=== PATIENT | female | born 1980 | race Caucasian/White ===

== ENCOUNTER → 2022-02-04 13:45 | Outpatient (BNVA) | payer BC, SELFPAY | PROVIDERS: Family Provider Nurse Practitioner Family; PCP Nurse Practitioner Family; Visit Provider Physician Assistant | DX: M54.50 Low back pain, unspecified (principal); M47.814 Spondylosis without myelopathy or radiculopathy, thoracic region; M47.816 Spondylosis without myelopathy or radiculopathy, lumbar region | CPT/HCPCS: 72072; 72110; 72170 ==

== ENCOUNTER 2022-06-24 15:02 | Outpatient (CLI) | payer BC, SELFPAY ==
--- NOTE | 2022-06-24 15:15 | MR_ITS ---
WS: [id number] MRI LUMBAR SPINE NONCONTRAST HISTORY: Chronic back pain. Bilateral leg weakness. COMPARISON: Radiograph 02/04/2022. Prior CT 11/08/2006 TECHNIQUE: Sagittal and axial multisequence imaging is submitted. Increase in thoracic kyphosis. Thoracolumbar scoliosis. Mild increase in the lumbar lordosis. Very minimal loss of height involving L1. Concave deformities a long the superior endplate may be due to prior fracture or Schmorl's nodes. Similar findings but to a lesser extent involving the superior endplate of T12. No acute marrow edema or fracture. Disc spaces are well preserved. Conus terminates normally at L1-2 disc level. T12-L1: Mild rotation of the vertebral bodies. Marked RIGHT facet joint arthritis encroaching towards the RIGHT lateral thecal sac and foramina. Moderate ligamentum flavum hypertrophy. Very slight retro pulsion of the posterior superior endplate of L1. Mild RIGHT foraminal stenosis. L1-L2: Bilateral mild to moderate facet joint arthritis and ligamentum flavum hypertrophy. No stenosi s or disc protrusion. L2-L3: Mild facet joint and ligamentum flavum arthritis. L3-L4: Mild facet joint and ligamentum flavum arthritis. L4-L5: Mild facet joint and ligamentum flavum arthritis. L5-S1: Mild annular disc bulging with ligamentum flavum and facet arthritis. No stenosis. No disc pro trusion. No retroperitoneal abnormalities. MR/MR lumbar spine wo con* [id number] IMPRESSION: 1. Mild RIGHT foraminal stenosis at T12-L1 due to facet joint arthritis on the RIGHT and rotary scoliosis. 2. No significant stenosis throughout the lumbar spine or disc protrusions. 3. Remote appearing minimal compression deformities at T12 and L1, slightly gr eater at L1 with minimal posterior bowing of the posterior superior endplate. N o encroachment upon the conus.
== END 2022-06-24 15:03 | disposition home or self-care (01) ==
PROVIDERS: PCP Registered Nurse; Visit Provider Physician Assistant
DX: M54.50 Low back pain, unspecified (principal); G89.29 Other chronic pain; R53.1 Weakness; M48.05 Spinal stenosis, thoracolumbar region; M41.85 Other forms of scoliosis, thoracolumbar region
CPT/HCPCS: 72148

== ENCOUNTER 2022-08-24 06:00 | Outpatient (RCR) | payer BC, SELFPAY | END 2022-08-24 23:59 | disposition home or self-care (01) | LOC: WPT 06:00 | PROVIDERS: PCP Registered Nurse; Visit Provider Anesthesiology Pain Medicine | DX: M54.50 Low back pain, unspecified (principal); G89.29 Other chronic pain | CPT/HCPCS: 97110; 97161 ==

== ENCOUNTER 2022-09-22 06:00 | Outpatient (RCR) | payer BC, SELFPAY | END 2022-10-22 23:59 | disposition home or self-care (01) | LOC: WPT 06:00 | PROVIDERS: PCP Registered Nurse; Visit Provider Anesthesiology Pain Medicine | DX: M54.50 Low back pain, unspecified (principal); G89.29 Other chronic pain | CPT/HCPCS: 97110 ==

== ENCOUNTER 2023-01-06 12:00 | Observation (INO) | payer BC, SELFPAY ==
[2023-01-06] VITALS (25 sets, daily range): BP systolic 118–161; BP diastolic 51–97; PULSE 74–99; RESP 15–26; TEMP 36.2–36.9; O2SAT 94–100; BMI 32.7
--- NOTE | 2023-01-06 12:02 | ED_ITS ---
HPI - Chest Pain General: Chief Complaint: Chest Pain Stated Complaint: CHEST PAIN Time Seen by Provider: 01/06/23 12:02 History of Present Illness: Ms. 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 She notes onset of symptoms approximately 930 this morning without known specific provokin g event or factors. Substernal in location with radiation to bilateral shoulders and arms worse on the left. She had associated diaphoresis. Minimal improvement by EMS administered fentanyl and Zofran. Pain is moderate to severe. No other specific changes in health, exacerbating, or alleviating factors identified. Onset (ago): hour(s) Timing of current episode: constant Prior episodes: No Onset: during rest Pain location: substernal Pain radiation: right arm, left arm, back, left shoulder and right shoulder Severity: severe Quality: aching, heaviness and sharp Relieving factors: nothing Exacerbating factors: inspiration Associated symptoms: Reports diaphoresis; Deny dyspnea, nausea or vomiting Review of Systems General: Reports: 10 or more systems reviewed and unremarkable except in HPI and below Const: Reports: diaphoresis Resp: Denies: dyspnea GI: Denies: nausea or vomiting PFSH ED PFSH: Medical History COPD (chronic obstructive pulmonary disease) Diabetes GERD (gastroesophageal reflux disease) Lumbar pain Smokes cigarettes Social History Smoking and tobacco status: current every day smoker Alcohol intake: never Substance/Drug Use: never Physical Exam Const: COMMON NORMALS: alert GENERAL APPEARANCE: cooperative and well developed HENMT: COMMON NORMALS: normocephalic and atraumatic HEAD & SCALP: norm ocephalic and atraumatic Eye: COMMON NORMALS: conjunctivae normal CONJUNCTIVA: Yes conjunctivae normal SCLERA: sclerae normal Neck/C-Spine: COMMON NORMALS: supple GENERAL: Yes trachea midline Resp: COMMON NORMALS: clear to auscultation bilaterally EFFORT & INSPECTION: Yes able to speak in complete sentences AUSCULTATION: clear to auscultation bilaterally Cardio: COMMON NORMALS: regular rate and regular rhythm RATE: regular rate RHYTHM: regular rhythm GI: COMMON NORMALS: Soft to palpation PALPATION: Yes Soft to palpation and No Tenderness to palpation present (GI) Extremity: GENERAL: Yes normal exam except as noted and No edema Neuro: COMMON NORMALS: moves all extremities SENSORIUM/ORIENTATION: Yes alert and No Orientation impaired Psych: COMMON NORMALS: mental status grossly normal and Normal thought process present THOUGHT PROCESS: Normal thought process present Course Vital Signs: Vital signs: Vital Signs Temperature 98.7 F 01/07/23 15:20 Pulse Rate 102 H 01/07/23 15:20 Respiratory Rate 18 01/07/23 15:20 Blood Pressure 114/84 01/07/23 14:45 Pulse Oximetry 93 01/07/23 15:20 Oxygen Delivery Me thod Room Air 01/07/23 15:20 MDM - Chest Pain Medical Decision Making 42-year-old female presenting for atraumatic chest pain. She is nontoxic however does appear somewhat uncomfortable. Given description of symptoms in the context of medical history patient requires further ED evaluation and testing. EKG notable for sinus rhythm with normal axis and intervals, nonspecific ST segment flattening in inferior lead, no STEMI. Labs notable for no leukocytosis, normal hemoglobin. Mild thrombocytopenia of uncertain etiology with no bleeding noted on exam. Mild dehydration with hyponatremia and minimally decreased bicarb. Glucose is elevated though overall metabolic panel and clinical history is not consistent with DKA. Patient has a intermediate range 2-hour delta troponin. hCG negative. Chest x-ray with no lobar consolidation or pneumothorax. Patient treated during ED course with analgesia, GI cocktail, aspirin. Given overall clinical picture including indeterminate range 2-hour troponin and continued discomfort I believe that the patient requires inpatient cardiac evaluation as she is not low risk by risk stratification. The results of ED evaluation were discussed with the patient including plan for admission due to requirement for level of care not available if discharged to prevent significant worsening/deterioration. Patient agreeable with plan. Discussed with hospitalist service who was agreeable to admit patient. Medical Records I reviewed the patient's medical records. Lab Data I reviewed the patient's lab results. 01/07/23 04:31 01/07/23 04:31 Radiology Impressions Chest X-Ray 01/06/23 12:16 IMPRESSION: No acute cardiopulmonary abnormality. Laboratory Results WBC 10.0 10^3/uL (4.0-10.0) 01/06/23 12:31 RBC 4.66 10^6/uL (4.1-5.3) 01/06/23 12:31 Hgb 12.4 g/dL (11.5-15.3) 01/06/23 12: Hct 39.5 % (37.0-47.0) 01/06/23 12: MCV 84.8 fl (81-99) 01/06/23 12: MCH 26.6 pg (28.0-34.0) L 01/06/23 12: MCHC 31.4 g/dL (30.0-36.0) 01/06/23 12: RDW 14.5 % (12.1-15.1) 01/06/23 12: Plt Count 129 10^3/cmm (130-400) L 01/06/23 12: MPV 10.6 fL (7.4-10.4) H 01/06/23 12: Neut % (Auto) 85.0 % 01/06/23 12: Lymph % (Auto) 9.4 % 01/06/23 12: Wallace % (Auto) 4.7 % 01/06/23 12: Eos % (Auto) 0.4 % 01/06/23 12: Baso % (Auto) 0.2 % 01/06/23 12: Neut # (Auto) 8.47 10^3/uL (1.8-7.7) H 01/06/23 12: Lymph # (Auto) 0.9 10^3/uL (0.8-4.8) 01/06/23 12: Wallace # (Auto) 0.5 10^3/uL (0.2-0.9) 01/06/23 12: Eos # (Auto) 0.0 10^3/uL (0.0-0.8) 01/06/23 12: Baso # (Auto) 0.0 10^3/uL (0.0-0.1) 01/06/23 12: Nucleated RBC % (auto) 0 % 01/06/23: Nucleated RBCs # 0.0 /100WBC 01/06/23 12: D-Dimer <= 0.27 ug/mIFEU (0-0.59) 01/06/23 12: D-Dimer Cancelled 01/06/23 12: Sodium 133 mmol/L (136-145) L 01/06/23 12:31 Potassium 4.8 mmol/L (3.5-5.1) 01/06/23 12:31 Chloride 102 mmol/L (98-107) 01/06/23 12:31 Carbon Dioxide 19 mmol/L (22-29) L 01/06/23 12:31 Anion Gap 16.8 (5-19) 01/06/23 12:31 BUN 16 mg/dL (6-20) 01/06/23 12:31 Creatinine 0.2 mg/dL (0.5-0.9) L 01/06/23 12:31 GFR Calculation 393.4 mL/min (90-130) H 01/06/23 12:31 Glucose 251 mg/dL (65-115) H 01/06/23 12:31 Calculated Osmolality 286 mOsm/kg (285-295) 01/06/23 12:31 Calcium 8.6 mg/dL (8.5-10.5) 01/06/23 12:31 Total Bilirubin 0.2 mg/dL (0.15-1.2) 01/06/23 12:31 AST 26 U/L (0-32) 01/06/23 12:31 ALT 30 U/L (0-33) 01/06/23 12:31 Alkaline Phosphatase 52 U/L (35-105) 01/06/23 12:31 Troponin T Baseline 29 ng/L (0-10) H 01/06/23 12:31 Troponin T 120 Minute 36.13 ng/L (0-10) H 01/06/23 14:36 Delta Troponin T 7.13 ABS# (0-10) 01/06/23 14:36 NT-Pro-B Natriuret Pep 36 pg/mL (0-125) 01/06/23 12:31 Total Protein 6.4 g/dL (6.6-8.7) L 01/06/23 12:31 Albumin 4.3 g/dL (3.5-5.2) 01/06/23 12:31 Globulin 2.1 g/dL (1.3-4.6) 01/06/23 12:31 Lipase 50 U/L (13-60) 01/06/23 12:31 HCG, Qual Negative (Negative) 01/06/23 12:44 Discharge Plan Discharge Patient Disposition: Placed in Observation Admit Provider: Charisma Medina Clinical Impression: Chest pain Coding Level of Care Code ED Supervisor [employer] for [facility] Edvin
--- NOTE | 2023-01-06 12:16 | ECG_ITS ---
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 Measurements Intervals [place] Rate: 66 P: 27 NE: 180 QRS: 7 QRSD: 92 T: 30 QT: 409 QTc: 430 Interpretive Statements SINUS RHYTHM WITH SINUS ARRHYTHMIA POSSIBLE ANTERIOR MYOCARDIAL INFARCTION , OF INDETERMINATE AGE [30 ms Q WAVE IN V3/V4, OR R < 0.2 mV IN V4] No previous ECG available for comparison Electronically Signed On 01-06-2023 16:34:26 CDT by Rosalinda Harman M.D. [id number]
--- NOTE | 2023-01-06 12:16 | XRR_ITS ---
PROCEDURE INFORMATION: Exam: XR Chest Exam date and time: 01/06/2023 12:31 PM Age: 42 years old Clinical indication: Condition or disease; Lung condition and disease; Copd; Additional info: Chest pain with history of copd. TECHNIQUE: Imaging protocol: Radiologic exam of the chest. Views: 1 view. COMPARISON: CR XR thoracic spine 3V* [id number] 02/04/2022 2:51 PM FINDINGS: Lungs: Unremarkable. No consolidation. Pleural spaces: Unremarkable. No pleural effusion. No pneumothorax. Heart/Mediastinum: Unremarkable. No cardiomegaly. Bones/joints: Mild thoracic dextroscoliosis with mild spondylotic change. XR/XR chest 1V portable [id number] IMPRESSION: No acute cardiopulmonary abnormality.
[2023-01-06] MEDS: aspirin 81 mg Chew Tablet 324 MG PO (12:39)
[2023-01-06] MEDS: lidocaine 2% viscous 15 ML, aluminum-mag hydrox-simethicon 30 ML, sucralfate oral liq 1 GM PO (12:42)
[2023-01-06 12:49] LABS: Basophils % 0.2 %; Eosinophils % 0.4 %; Hematocrit 39.5 % (37.0-47.0); Hemoglobin 12.4 g/dL (11.5-15.3); Lymphocytes # 0.9 10^3/uL (0.8-4.8); Lymphocytes % 9.4 %; Mean Corpuscular HGB Conc 31.4 g/dL (30.0-36.0); Mean Corpuscular Hemoglobin 26.6 pg (28.0-34.0); Mean Corpuscular Volume 84.8 fl (81-99); Mean Platelet Volume 10.6 fL (7.4-10.4); Monocytes # 0.5 10^3/uL (0.2-0.9); Monocytes % 4.7 %; Neutrophils # 8.47 10^3/uL (1.8-7.7); Nucleated Red Blood Cells % 0 %; Platelet Count 129 10^3/cmm (130-400); Red Blood Count 4.66 10^6/uL (4.1-5.3); Red Cell Distribution Width 14.5 % (12.1-15.1)
[2023-01-06] MEDS: HYDROmorphone 1 mg/mL INJ 1 mL 0.5 MG IVP ×2 (12:56→14:38)
[2023-01-06 13:10] LABS: Troponin(5th) Baseline 29 ng/L (0-10)
[2023-01-06 13:10] LABS: HCG Qualitative Urine. Negative (Negative)
[2023-01-06 13:17] LABS: Alanine Aminotransferase 30 U/L (0-33); Albumin Level 4.3 g/dL (3.5-5.2); Alkaline Phosphatase 52 U/L (35-105); Aspartate Amino Transferase 26 U/L (0-32); Blood Urea Nitrogen 16 mg/dL (6-20); Calcium 8.6 mg/dL (8.5-10.5); Carbon Dioxide 19 mmol/L (22-29); Chloride 102 mmol/L (98-107); Globulin 2.1 g/dL (1.3-4.6); Glomerular Filtration Rate 393.4 mL/min (90-130); Glucose 251 mg/dL (65-115); Lipase 50 U/L (13-60); NT Pro B Type Natriuretic Pept 36 pg/mL (0-125); Osmolality Calculated 286 mOsm/kg (285-295); Sodium 133 mmol/L (136-145); Total Bilirubin 0.2 mg/dL (0.15-1.2); Total Protein 6.4 g/dL (6.6-8.7)
[2023-01-06 13:18] LABS: Anion Gap 16.8 (5-19); Potassium 4.8 mmol/L (3.5-5.1)
[2023-01-06 13:30] LABS: Slide Review Slide Review Perform
[2023-01-06 14:04] LABS: D Dimer <= 0.27 ug/mIFEU (0-0.59)
--- NOTE | 2023-01-06 14:16 | ECG_ITS ---
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 Measurements Intervals [place] Rate: 65 P: 21 [place]: 183 QRS: 0 QRSD: 96 T: 40 QT: 394 QTc: 410 Interpretive Statements SINUS RHYTHM LOW QRS VOLTAGE IN PRECORDIAL LEADS [QRS DEFLECTION < 1.0 mV IN CHEST LEADS] Compared to ECG 01/06/2023 12:16:35 Low QRS voltage now present Sinus arrhythmia no longer present Myocardial infarct finding no longer present Electronically Signed On 01-06-2023 16:34:51 CDT by Rosalinda Harman M.D. [id number]
[2023-01-06 15:05] LABS: Troponin 5 2HR 36.13 ng/L (0-10)
[2023-01-06 15:09] LABS: Troponin 5 2HR Delta 7.13 ABS# (0-10)
[2023-01-06] MEDS: nicotine 14 mg Patch 1 PATCH TRANSDERMA (16:13)
[2023-01-06 17:46] LABS: Glucose Point of Care 217 mg/dL (70-110)
--- NOTE | 2023-01-06 17:46 | ECG_ITS ---
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 Interpretive Statements NAME OF STUDY: LEXISCAN SESTAMIBI STRESS TEST INDICATION: [Chest Pain, ] Procedure: At the baseline, the blood pressure was 150/96 mmHg with a heart rate of 98 bpm. The electrocardiogram showed normal sinus rhythm, normal axis with normal ST and T's. The Lexiscan was infused over a period of 20 seconds. A total of 0.4 mg of Lexiscan was infused. The stress phase was continued for a total of 5 minutes. Heart rate was at the end of stress phase was 120 bpm and a blood pressure of 185/89 mmHg. The EKG at the peak infusion revealed normal sinus rhythm with no significant ST-T wave changes. Sestamibi was injected 20 seconds after the Lexiscan infusion. Blood pressure at the end of recovery phase was 154/67 mmHg with a heart rate of 102 bpm. Conclusion: 1. Normal EKG response to Lexiscan infusion 2. No Lexiscan induced chest pain or cardiac arrhythmia. 3. Normal blood pressure and heart rate response. 4. Sestamibi/sestamibi perfusion scan pending; see separate report. Electronically Signed On 01-14-2023 15:50:35 CDT by Donaldo Garcia M.D. [id number]
--- NOTE | 2023-01-06 18:00 | P.HP_ITS ---
Providers/Chief Complaint Admitting Physician: Charisma Medina MD Primary Care Provider: MAIKEL Suarez Chief Complaint: CHEST PAIN History of Present Illness Maritza Landis is a 42 year old female with PMH HTN, DM , smoking, Pompei disease who presentes today for central chest pain that started whiel she was driving home. radiating to jaw, no associated diaphoresis, dyspnea. EKG without acute ST-T wave changes. Troponin trend at 2 hrs unremarkable thus far. D dimer is negative. no past h/o CAD. has ah/o similar chest pain 2 years ago at which time stress test was taken and negative . pain is currently relived with opiates Review of Systems General: Reports: 10 or more systems reviewed and unremarkable except in HPI and below Const: Denies: fever(s), chills or body aches Eyes: Denies: change in vision, blurry vision or photophobia ENMT: Reports: hoarseness; Denies: throat pain, enlarged tonsils, odynophagia or nasal congestion Card: Denies: chest pain, palpitations, irregular heart rhythm, edema, swelling of feet/ankles, lightheadedness, pre-syncope, dyspnea on exertion or orthopnea Resp: Denies: dyspnea, productive cough, non-productive cough, wheezing, stridor, pain on inspiration, change in phlegm color, hemoptysis or chest congestion GI: Denies: abdominal pain, nausea, vomiting, hematemesis, coffee ground emesis, dysphagia, heartburn, diarrhea, constipation, GI cramping, change in st ool character, hematochezia or melena : Denies: flank pain, difficulty voiding, dysuria, urinary frequency, urinary urgency, urinary hesitancy or hematuria Musc: Denies: neck pain, back pain, extremity pain, joint swelling, joint warmth or deformity Neuro: Denies: headache(s), numbness in extremities, weakness in extremities, sensory changes, difficulty walking, frequent falls, dizziness, vertigo, behavio ral changes, Slurred speech present or seizure-like activity Psych: Denies: anxiety, depression, suicidal ideation or homicidal ideation Endo: Denies: polyuria, polydipsia, tired all the time, cold intolerance or hot flashes Bob/Lymph: Denies: easy bruising or easy bleeding Medications/Allergies Home Medications Medication Instructions Recorded Confirmed Last Taken Type omeprazole 20 mg capsule,delayed 20 mg PO DAILY 02/04/22 01/06/23 01/05/23 History release potassium chloride 20 mEq 20 meq PO DAILY 02/04/22 01/06/23 01/05/23 History tablet,extended release diclofenac sodium 50 mg 50 mg PO BID #60 tabs 04/12/22 01/06/23 01/05/23 Rx tablet,delayed release Marijuana 08/12/22 01/06/23 Unknown History methocarbamol 750 mg tablet 750 mg PO Q8H 08/12/22 01/06/23 Unknown History semaglutide 7 mg tablet (Rybelsus) 7 mg PO DAILY 08/12/22 01/06/23 01/05/23 History aripiprazole 2 mg tablet 2 mg PO DAILY 01/06/23 01/06/23 01/05/23 History duloxetine 60 mg capsule,delayed 60 mg PO DAILY 01/06/23 01/06/23 01/05/23 History release insulin detemir U-100 100 unit/mL 90 unit SUBCUT DAILY 01/06/23 01/06/23 01/05/23 History (3 mL) subcutaneous pen (Levemir FlexPen) magnesium 200 mg tablet 200 mg PO DAILY 01/06/23 01/06/23 01/05/23 History tumeric 100 mg-joel 150 mg-olive 1 cap PO BID 01/06/23 01/06/23 01/05/23 History 50 mg-oreg 150 mg-caprylate capsule vitamin E 268 mg (400 unit) capsule 268 mg PO DAILY 01/06/23 01/06/23 01/05/23 History Allergies Allergy/AdvReac Type Severity Reaction Status Date / Time metformin Allergy Intermediate diarrhea Verified 01/06/23 12:20 exenatide [From Bydureon] Allergy Mild knots Verified 01/06/23 12:20 hydrocodone Allergy Mild ADR-Diarrhe Verified 01/06/23 12:20 [From Hycomine a (hydrocodone-PPA)] phenylpropanolamine Allergy Mild ADR-Diarrhe Verified 01/06/23 12:20 [From Hycomine a (hydrocodone-PPA)] PFSH Acute PFSH: Medical History COPD (chronic obstructive pulmonary disease) Diabetes GERD (gastroesophageal reflux disease) Lumbar pain Smokes cigarettes Social History Smoking and tobacco status: current every day smoker Alcohol intake: never Substance/Drug Use: never Female Reproductive History: Date of last menstrual period: 12/13/22 Vitals/I&O/Wt Last Vital Signs Temp 98.8 F 01/07/23 12:00 Pulse 91 01/07/23 12:00 Resp 20 H 01/07/23 12:00 BP 114/84 01/07/23 12:00 Pulse Ox 95 01/07/23 12:00 O2 Del Method Room Air 01/07/23 12:00 01/06/23 01/07/23 01/07/23 22:59 06:59 14:59 Intake Total 0 / 0 180 / 180 Output Total 0 / 0 Balance 0 / 0 180 / 180 Weight last 48 hrs Weight 103.419 kg Physical Exam Narrative: General: No acute distress, AO x3 HEENT: PERRLA, pupils bilaterally equal and reactive, pallors not present Chest: Normal vesicular breath sounds, no added sounds, equal good air entry bilaterally CVS: S1-S2 regular, no murmurs, no tachycardia, no gallops, no rubs Abdomen: Soft, nontender, no organomegaly, bowel sounds present Neuro: No focal deficits, no facial deformity, AO x3, power 5/5 in all limbs Data 01/07/23 04:31 01/07/23 04:31 A&P Assessment and plan (1) Chest pain: patient presenting today with atypical chest pain EKG withotu acute ST-T wave changes trop trend 29--> 36--> pending D dimer negative, no respiratory symptoms, low probability PE Given multiple cardiac risk factors (DM, HTN, smoking), will proceed with stress test in am Attestations Medical Necessity Statement*: less than 2 midnight stay anticipated for evaluation of atypical chest pain Coding Level of Care Code Acute Code for g Fwd Diagnoses Chest pain R07.9
--- NOTE | 2023-01-06 18:16 | ECG_ITS ---
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 Measurements Intervals [place] Rate: 77 P: 32 PA: 175 QRS: 1 QRSD: 94 T: 54 QT: 375 QTc: 426 Interpretive Statements SINUS RHYTHM LOW QRS VOLTAGE IN PRECORDIAL LEADS [QRS DEFLECTION < 1.0 mV IN CHEST LEADS] Compared to ECG 01/06/2023 14:26:14 No significant changes Electronically Signed On 01-07-2023 4:58:56 CDT by Rosalinda Harman M.D. [id number]
[2023-01-06 18:57] LABS: Troponin 5 6HR 90.76 ng/L (0-10)
[2023-01-06 18:59] LABS: Troponin 5 6HR Delta 61.76 ng/L (0-12)
[2023-01-06] MEDS: pneumococcal (23 valent) SDV 0.5 mL IM (19:34)
[2023-01-06] MEDS: insulin lispro 100 unit/1 mL SUBCUT ×2 (19:37→22:03)
[2023-01-06 21:51] LABS: Glucose Point of Care 204 mg/dL (70-110)
[2023-01-07] VITALS (9 sets, daily range): BP systolic 114–160; BP diastolic 67–90; PULSE 86–102; RESP 18–20; TEMP 36.8–37.1; O2SAT 93–98
[2023-01-07] MEDS: enoxaparin 100 mg/mL Syringe SUBCUT (03:41)
[2023-01-07 05:39] LABS: Basophils % 0.6 %; Eosinophils # 0.1 10^3/uL (0.0-0.8); Eosinophils % 1.5 %; Hematocrit 39.7 % (37.0-47.0); Hemoglobin 12.8 g/dL (11.5-15.3); Lymphocytes # 2.1 10^3/uL (0.8-4.8); Lymphocytes % 31.7 %; Mean Corpuscular HGB Conc 32.2 g/dL (30.0-36.0); Mean Corpuscular Hemoglobin 26.9 pg (28.0-34.0); Mean Corpuscular Volume 83.6 fl (81-99); Mean Platelet Volume 10.9 fL (7.4-10.4); Monocytes # 0.4 10^3/uL (0.2-0.9); Monocytes % 6.3 %; Neutrophils # 3.99 10^3/uL (1.8-7.7); Neutrophils % 59.6 %; Nucleated Red Blood Cells % 0 %; Platelet Count 269 10^3/cmm (130-400); Red Blood Count 4.75 10^6/uL (4.1-5.3); Red Cell Distribution Width 14.5 % (12.1-15.1); White Blood Count 6.7 10^3/uL (4.0-10.0)
[2023-01-07 05:50] LABS: Estmated Average Glucose 203; Hemoglobin A1C 8.7 % (4.0-6.0)
[2023-01-07 05:57] LABS: Alanine Aminotransferase 29 U/L (0-33); Alkaline Phosphatase 53 U/L (35-105); Anion Gap 15.7 (5-19); Aspartate Amino Transferase 36 U/L (0-32); Blood Urea Nitrogen 9 mg/dL (6-20); Calcium 9.1 mg/dL (8.5-10.5); Carbon Dioxide 22 mmol/L (22-29); Chloride 102 mmol/L (98-107); Chol HDL Ratio 5.08 mg/dL (0.0-4.40); Cholesterol 203 mg/dL (0-200); Globulin 2.5 g/dL (1.3-4.6); Glomerular Filtration Rate 393.4 mL/min (90-130); Glucose 203 mg/dL (65-115); HDL Cholesterol 40 mg/dL (60-100); LDL Cholesterol Calculated 123 mg/dL (50-129); LDL HDL Ratio 3.08 RATIO (0.00-3.22); Osmolality Calculated 286 mOsm/kg (285-295); Potassium 3.7 mmol/L (3.5-5.1); Sodium 136 mmol/L (136-145); Total Bilirubin 0.4 mg/dL (0.15-1.2); Total Protein 6.5 g/dL (6.6-8.7); Triglycerides 198 mg/dL (0-150)
[2023-01-07] MEDS: regadenoson 0.4 Mg/5 ml Syringe IVP (07:25)
[2023-01-07] MEDS: ondansetron 2 mg/ML SDV 2 mL 4 MG IVP (07:33)
--- NOTE | 2023-01-07 08:00 | NMCV_ITS ---
NM sherman perf SPECT r/s* [id number] Maritza Landis Age: 42 Gender: F : 1980 Exam Date: 01/07/2023 06:36 Ordering Phys: Charisma Medina MD Technologist: RENEA Roach Exam Location: [facility] Indications: CHEST PAIN STRESS TEST Please see separate stress test report in [facility] for full findings IMAGE PROTOCOL Rest/Stress 1 Lexiscan Day Radiopharmaceutical Dose (mCi) Administration Site Administered by Rest: Tc-99m 10.9 IV Ricky Rodríguez, EQUIPMENT SERVICES ASSOCIATE Sestamibi Stress:Tc-99m 32.9 IV RENEA Roach Sestamibi Rest: 01/07/2023 60 Discovery 630 Stress: 01/07/2023 30 Discovery 630 0.4mg Lexiscan. Images obtained in supine and prone position. SPECT RESULTS Technical Quality: Excellent Raw Data Analysis: Normal Image Corrections: No attenuation or motion correction applied Summed Stress Score: 0 Summed Rest Score: 0 Summed Difference Score: 0 PERFUSION FINDINGS SPECT images demonstrate homogeneous tracer distribution throughout the myocardium. FUNCTIONAL RESULTS (calculated via Gated SPECT) Stress Image LV EF (%): 72 Stress EDV (mL):94 TID: 1.35 Stress ESV (mL):26 FUNCTIONAL FINDINGS: There is normal left ventricular systolic function. Elevated TID ratio IMPRESSIONS 1. Normal myocardial perfusion imaging with no evidence of ischemia 2. LV systolic function is normal. 3. Elevated TID ratio but in absence of perfusion abnormality, significance of this finding is equivocal. Donaldo Garcia MD (Electronically Signed) Final Date: 07 January 2023 13:27 S
[2023-01-07 08:43] LABS: Glucose Point of Care 262 mg/dL (70-110)
[2023-01-07] MEDS: potassium chloride ER 20 mEq Tablet PO (09:25)
[2023-01-07] MEDS: duloxetine 60 mg Capsule PO (09:25)
[2023-01-07] MEDS: magnesium oxide 400 mg tablet 200 MG PO (09:26)
[2023-01-07] MEDS: ARIPiprazole 2 mg Tablet PO (09:26)
[2023-01-07] MEDS: pantoprazole DR 40 mg Tablet PO (09:26)
[2023-01-07] MEDS: insulin lispro 100 unit/1 mL SUBCUT ×2 (09:26→11:43)
[2023-01-07] MEDS: insulin glargine 100 units/1 mL 60 UNIT SUBCUT (10:09)
[2023-01-07 11:07] LABS: Glucose Point of Care 228 mg/dL (70-110)
--- NOTE | 2023-01-07 14:29 | P.DS_ITS ---
Discharge Providers Date of Admission: 01/06/23 17:09 Date of Discharge: January 07, 2023 Attending Provider at Admission: Charisma Medina MD Attending Provider at Discharge: Charisma Medina MD Primary Care Provider: MAIKEL Suarez Reason for Visit Reason for Visit: CHEST PAIN Hospital Course Hospital Course 42F with PMH HTN, DM, smkoing, Pompe disease presented with c/o atypical chest pain. trop trend 29--> 36--> 90 without progressive changes on EKG. Chest pain was relieved shortly after arrival at ER after receiving opiates. She underwent stress test for ischemic w/up. Stress test was without any signs of reversible ischemia. Given that troponins did elevate with significant delta, she was recommended to obtain further evaluation with echocardiogram for any underlyibg structural heart disease. She declined inpatient echo and wished to pursue further w/up as outpatient and requested referral to cardiology. Echocardiogram was ordered as outpatint and cardiology referral provided. There was no recurrence of chest pain. She is asymptomatic at time of discharge. Physical Exam 2 Narrative: General: No acute distress, AO x3 HEENT: PERRLA, pupils bilaterally equal and reactive, pallors not present Chest: Normal vesicular breath sounds, no added sounds, equal good air entry bilaterally CVS: S1-S2 regular, no murmurs, no tachycardia, no gallops, no rubs Abdomen: Soft, nontender, no organomegaly, bowel sounds present Neuro: No focal deficits, no facial deformity, AO x3, power 5/5 in all limbs Discharge Data Studies Completed and Pending Completed Studies During Hospitalization Category Date Time Status Cardiac Stress Test MIBI [Sestamibi Stress Test Request Exams 01/06/23 17:46 Draft ] Routine XR chest 1V portable [id number] Stat Exams 01/06/23 12:16 Completed NM sherman perf SPECT r/s* [id number] Routine Nuc Med 01/07/23 08:00 Completed Radiology Impressions Chest X-Ray 01/06/23 12:16 IMPRESSION: No acute cardiopulmonary abnormality. Laboratory Results WBC 6.7 10^3/uL (4.0-10.0) 01/07/23 04:31 RBC 4.75 10^6/uL (4.1-5.3) 01/07/23 04:31 Hgb 12.8 g/dL (11.5-15.3) 01/07/23 04:31 Hct 39.7 % (37.0-47.0) 01/07/23 04:31 MCV 83.6 fl (81-99) 01/07/23 04:31 MCH 26.9 pg (28.0-34.0) L 01/07/23 04:31 MCHC 32.2 g/dL (30.0-36.0) 01/07/23 04:31 RDW 14.5 % (12.1-15.1) 01/07/23 04:31 Plt Count 269 10^3/cmm (130-400) D 01/07/23 04:31 MPV 10.9 fL (7.4-10.4) H 01/07/23 04:31 Neut % (Auto) 59.6 % 01/07/23 04:31 Lymph % (Auto) 31.7 % 01/07/23 04:31 [place] % (Auto) 6.3 % 01/07/23 04:31 Eos % (Auto) 1.5 % 01/07/23 04:31 Baso % (Auto) 0.6 % 01/07/23 04:31 Neut # (Auto) 3.99 10^3/uL (1.8-7.7) 01/07/23 04:31 Lymph # (Auto) 2.1 10^3/uL (0.8-4.8) 01/07/23 04:31 [place] # (Auto) 0.4 10^3/uL (0.2-0.9) 01/07/23 04:31 Eos # (Auto) 0.1 10^3/uL (0.0-0.8) 01/07/23 04:31 Baso # (Auto) 0.0 10^3/uL (0.0-0.1) 01/07/23 04:31 Nucleated RBC % (auto) 0 % 01/07/23 04:31 Nucleated RBCs # 0.0 /100WBC 01/07/23 04:31 D-Dimer <= 0.27 ug/mIFEU (0-0.59) 01/06/23 12:31 D-Dimer Cancelled 01/06/23 12:31 Sodium 136 mmol/L (136-145) 01/07/23 04:31 Potassium 3.7 mmol/L (3.5-5.1) 01/07/23 04:31 Chloride 102 mmol/L (98-107) 01/07/23 04:31 Carbon Dioxide 22 mmol/L (22-29) 01/07/23 04:31 Anion Gap 15.7 (5-19) 01/07/23 04:31 BUN 9 mg/dL (6-20) 01/07/23 04:31 Creatinine 0.2 mg/dL (0.5-0.9) L 01/07/23 04:31 GFR Calculation 393.4 mL/min (90-130) H 01/07/23 04:31 Glucose 203 mg/dL (65-115) H 01/07/23 04:31 POC Glucose 228 mg/dL (70-110) H 01/07/23 10:59 Estimat Average Glucose 203 01/07/23 04:31 Hemoglobin A1c 8.7 % (4.0-6.0) H 01/07/23 04:31 Calculated Osmolality 286 mOsm/kg (285-295) 01/07/23 04:31 Calcium 9.1 mg/dL (8.5-10.5) 01/07/23 04:31 Total Bilirubin 0.4 mg/dL (0.15-1.2) 01/07/23 04:31 AST 36 U/L (0-32) H 01/07/23 04:31 ALT 29 U/L (0-33) 01/07/23 04:31 Alkaline Phosphatase 53 U/L (35-105) 01/07/23 04:31 Troponin T Baseline 29 ng/L (0-10) H 01/06/23 12:31 Troponin T 120 Minute 36.13 ng/L (0-10) H 01/06/23 14:36 Delta Troponin T 7.13 ABS# (0-10) 01/06/23 14:36 Troponin T Hi Sens 6Hr 90.76 ng/L (0-10) H 01/06/23 18:30 Troponin T Hi Sens 6Hr Delta 61.76 ng/L (0-12) H* 01/06/23 18:30 NT-Pro-B Natriuret Pep 36 pg/mL (0-125) 01/06/23 12:31 Total Protein 6.5 g/dL (6.6-8.7) L 01/07/23 04:31 Albumin 4.0 g/dL (3.5-5.2) 01/07/23 04:31 Globulin 2.5 g/dL (1.3-4.6) 01/07/23 04:31 Triglycerides 198 mg/dL (0-150) H 01/07/23 04:31 Cholesterol 203 mg/dL (0-200) H 01/07/23 04:31 LDL Cholesterol, Calc 123 mg/dL (50-129) 01/07/23 04:31 HDL Cholesterol 40 mg/dL (60-100) L 01/07/23 04:31 LDL/HDL Ratio 3.08 RATIO (0.00-3.22) 01/07/23 04:31 Cholesterol/HDL Ratio 5.08 mg/dL (0.0-4.40) H 01/07/23 04:31 Lipase 50 U/L (13-60) 01/06/23 12:31 HCG, Qual Negative (Negative) 01/06/23 12:44 Vitals Last Vital Signs Temp 98.8 F 01/07/23 12:00 Pulse 91 01/07/23 12:00 Resp 20 H 01/07/23 12:00 BP 114/84 01/07/23 12:00 Pulse Ox 95 01/07/23 12:00 O2 Del Method Room Air 01/07/23 12:00 Discharge Plan Discharge Patient Disposition: Home Condition: Stable Prescriptions: Continued potassium chloride 20 mEq tablet extended release 20 meq PO DAILY omeprazole 20 mg capsule,delayed release(DR/EC) 20 mg PO DAILY Rybelsus 7 mg tablet 7 mg PO DAILY methocarbamol 750 mg tablet 750 mg PO Q8H (DME) Marijuana 0 .ROUTE .MEDSUPPLY diclofenac sodium 50 mg tablet,delayed release (DR/EC) 50 mg PO BID Qty: 60 3RF Rx Instructions: take with food duloxetine 60 mg capsule,delayed release(DR/EC) 60 mg PO DAILY Levemir FlexPen 100 unit/mL (3 mL) insulin pen 90 unit SUBCUT DAILY aripiprazole 2 mg tablet 2 mg PO DAILY vitamin E 268 mg (400 unit) Capsule 268 mg PO DAILY magnesium 200 mg Tablet 200 mg PO DAILY hhllkrr-ewre-usrlb-oreg-capryl 100 mg-150 mg- 50 mg-150 mg Capsule 1 cap PO BID Discharge Orders: Discharge Order (Routine); Ordered 01/07/23 Ordered By: Charisma Medina Referrals: Moises Green CPNP [Primary Care Provider] - 01/10/23 2:00 pm (If you need to reschedule, just call the office at [phone] to speak with them about a different appointment. Thank you.) Donaldo Garcia M.D [Physician] - (Please call Dr. Garcia's Office on Tuesday to schedule a follow up appointment for 10-14 days. Thank you.) Patient Instructions: Cardiac Stress Test (GEN), Chest Pain Stoplight, Opioid Safety Discharge Attestations Time Spent in Discharge Care*: greater than 30 min Quality Metrics Clinical Quality Measures [ No reported AMI, CVA or VTE this stay] Coding Level of Care Code Acute Code for Chg Fwd Diagnoses
--- NOTE | 2023-01-07 16:25 | PC.NURSE ---
Patient given verbal and written discharge information, patient verbalized understanding. IV removed at 15:30, patient tolerated well. Patient taken to parking lot via wheelchair. Left facility with family.
== END 2023-01-07 15:50 | disposition home or self-care (01) ==
LOC: ER 15:53 → CSU 01-07 06:12
PROVIDERS: Admitting Provider Student in an Organized Health Care Education/Training Program; Emergency Provider Emergency Medicine; PCP Registered Nurse; Visit Provider Student in an Organized Health Care Education/Training Program
DX: E11.9 Type 2 diabetes mellitus without complications (principal); Z79.4 Long term (current) use of insulin; I10 Essential (primary) hypertension; F17.200 Nicotine dependence, unspecified, uncomplicated; D69.6 Thrombocytopenia, unspecified; E86.0 Dehydration; E87.1 Hypo-osmolality and hyponatremia; R07.9 Chest pain, unspecified; J44.9 Chronic obstructive pulmonary disease, unspecified; K21.9 Gastro-esophageal reflux disease without esophagitis; M54.9 Dorsalgia, unspecified; G89.29 Other chronic pain; Z23 Encounter for immunization
CPT/HCPCS: 36415; 36416; 71045; 78452; 80053; 80061; 81025; 82962; 83036; 83690; 83880; 84484; 85025; 85378; 90732; 93005; 93017; 96372; 96374; 96375; 96376; 99285; A9500; G0378; J1170; J1650; J1815; J2405; J2785

== ENCOUNTER 2023-01-13 07:11 | Outpatient (CLI) | payer BC, SELFPAY ==
--- NOTE | 2023-01-13 06:45 | USCV_ITS ---
Maritza Landis Age: 42 Gender: F : 1980 Exam Date: 01/13/2023 07:29 Ordering Phys: Charisma Medina MD Technologist: VIDYA Exam Location: [facility] [place] Indication: RECURRENT CHEST PAIN BP: 125 / 71 HR: 75 Rhythm: Sinus Technical Quality: Adequate MEASUREMENTS (Male / Female) Normal Values 2D ECHO LVOT Diameter 2.0 cm LV Ejection Fraction MOD 2C 62.0 % LV Ejection Fraction 2C AL 64.0 % LA Diameter 3.2 cm LA Width 2.7 cm LA Height 4.7 cm RA Width 3.5 cm RA Height 4.0 cm Aorta at Sinotubular Diameter 2.5 cm IVC Diameter 1.5 cm M-MODE Aortic Annulus Diameter 3.3 cm LA Ao Ratio MM 0.9 MV E Point Septal Separation 0.6 cm DOPPLER AV Peak Velocity 151.0 cm/s LVOT Peak Velocity 130.0 cm/s AV Area Cont Eq vti 2.7 cm squared AV Area Cont Eq pk 2.7 cm squared MV Peak Velocity 85.0 cm/s MV Area PHT 3.3 cm squared Mitral E to A Ratio 1.2 MV E' Velocity 52.5 cm/s Mitral E to MV E' Ratio 7.7 Mitral E to LV E' Lateral Ratio 6.4 Mitral E to LV E' Septal Ratio 9.6 TR Peak Velocity 118.6 cm/s TR Peak Gradient 5.6 mmHg TR Mean Velocity 113.4 cm/s TR Mean Gradient 6.0 mmHg TR Velocity Time Integral 43.0 cm Right Atrial Pressure 3.0 mmHg Pulmonary Artery Systolic Pressu 8.6 mmHg PV Peak Velocity 92.0 cm/s RV Acceleration Time 0.2 s RV Ejection Time 0.3 s RV AcT/ET 0.6 FINDINGS Left Ventricle Left ventricle is normal size. LV systolic function is normal with EF of 55 to 60%. No regional wall motion abnormalities are seen. Right Ventricle Normal in size and function Right Atrium Normal in size Left Atrium Normal in size Mitral Valve Structurally normal mitral valve. Mild mitral regurgitation. Aortic Valve Structurally normal aortic valve. No significant stenosis or regurgitation. Tricuspid Valve Trace tricuspid regurgitation. Insufficient TR jet to calculate RVSP. Pulmonic Valve Not well visualized Pericardium Normal Aorta Normal in size IVC Not well visualized CONCLUSIONS LV systolic function is normal with EF 55 to 60%. Mild mitral regurgitation Trace tricuspid regurgitation No comparison studies are available Donaldo Garcia MD (Electronically Signed) Final Date: 23 January 2023 09:27 S
== END 2023-01-13 07:12 | disposition home or self-care (01) ==
LOC: RAD 07:13
PROVIDERS: PCP Registered Nurse; Visit Provider Student in an Organized Health Care Education/Training Program
DX: R07.9 Chest pain, unspecified (principal)
CPT/HCPCS: 93306

== ENCOUNTER 2023-07-14 08:00 | Oncology outpatient (recurring) (ONCR) | payer BC, SELFPAY ==
[2023-06-29 08:29] VITALS: BMI 32.4
[2023-06-29 08:30] VITALS: BMI 32.4
[2023-06-29 08:33] VITALS: BP 145/89; PULSE 81; RESP 16; TEMP 36.6; O2SAT 99
[2023-06-29] MEDS: acetaminophen 325 mg Tablet 650 MG PO (09:01)
[2023-06-29] MEDS: dextrose 5% 250 ML 75 ML IV (09:01)
[2023-06-29] MEDS: diphenhydrAMINE 25 mg Capsule PO (09:01)
[2023-06-29] MEDS: methylPREDNISolone sod succ 40 mg/mL INJ IVP (09:01)
[2023-06-29 10:43] VITALS: BP 144/84; PULSE 83; TEMP 36.8; O2SAT 97
[2023-06-29 11:13] VITALS: BP 134/81; PULSE 95; TEMP 36.6; O2SAT 98
[2023-06-29 11:45] VITALS: BP 138/82; PULSE 88; TEMP 36.6; O2SAT 95
[2023-06-29 14:00] VITALS: BP 155/94; PULSE 86; TEMP 36.4; O2SAT 98
[2023-07-14 08:29] VITALS: BP 129/74; PULSE 79; RESP 18; TEMP 36.3; O2SAT 98
[2023-07-14 09:12] VITALS: BP 141/81; PULSE 91; RESP 18; TEMP 36.6; O2SAT 98
[2023-07-14] MEDS: dextrose 5% 250 ML 75 ML IV (09:13)
[2023-07-14] MEDS: methylPREDNISolone sod succ 40 mg/mL INJ IVP (09:13)
[2023-07-14] MEDS: diphenhydrAMINE 25 mg Capsule PO (09:13)
[2023-07-14] MEDS: acetaminophen 325 mg Tablet 650 MG PO (09:14)
[2023-07-14 09:55] VITALS: BP 125/70; PULSE 88; RESP 16; TEMP 36.6; O2SAT 98
[2023-07-14 10:35] VITALS: BP 128/74; PULSE 81; RESP 17; TEMP 36.3; O2SAT 97
[2023-07-14 14:28] VITALS: BP 131/84; PULSE 83; RESP 16; TEMP 36.7; O2SAT 96
== END 2023-07-24 23:59 | disposition home or self-care (01) ==
PROVIDERS: PCP Registered Nurse; Visit Provider Registered Nurse
DX: Z53.9 Procedure and treatment not carried out, unspecified reason (principal); E74.02 Pompe disease
CPT/HCPCS: 96365; 96366; 96375; J2920; J7060

== ENCOUNTER 2023-08-11 08:00 | Oncology outpatient (recurring) (ONCR) | payer BC, SELFPAY ==
[2023-07-28 08:15] VITALS: BP 139/79; PULSE 81; RESP 16; TEMP 36.6; O2SAT 98
[2023-07-28] MEDS: acetaminophen 325 mg Tablet 650 MG PO (08:39)
[2023-07-28] MEDS: dextrose 5% 250 ML 75 ML IV (08:39)
[2023-07-28] MEDS: diphenhydrAMINE 25 mg Capsule PO (08:39)
[2023-07-28 08:59] VITALS: BMI 32.5
[2023-07-28] MEDS: [UNRECOGNIZED DRUG - OTHER] IV (09:15)
[2023-07-28] MEDS: DEXTROSE 5% IV (09:15)
[2023-07-28 09:20] VITALS: BP 125/77; PULSE 81; RESP 16; TEMP 36.6; O2SAT 98
[2023-07-28 09:50] VITALS: BP 132/83; PULSE 86; RESP 16; TEMP 36.2; O2SAT 98
[2023-07-28 10:20] VITALS: BP 126/80; PULSE 79; RESP 16; TEMP 36.4; O2SAT 96
[2023-07-28 10:50] VITALS: BP 130/81; PULSE 78; RESP 16; TEMP 36.6; O2SAT 98
[2023-07-28 13:25] VITALS: BP 146/84; PULSE 91; RESP 16; TEMP 36.4; O2SAT 98
[2023-08-11 08:06] VITALS: BMI 32.1
[2023-08-11 08:08] VITALS: BP 137/87; PULSE 85; RESP 16; TEMP 36.6; O2SAT 98
[2023-08-11] MEDS: diphenhydrAMINE 25 mg Capsule PO (08:21)
[2023-08-11] MEDS: acetaminophen 325 mg Tablet 650 MG PO (08:21)
[2023-08-11] MEDS: dextrose 5% 250 ML 20 ML IV (08:21)
[2023-08-11 09:00] VITALS: BP 129/82; PULSE 82; RESP 16; TEMP 36.6; O2SAT 98
[2023-08-11] MEDS: DEXTROSE 5% IV (09:01)
[2023-08-11] MEDS: [UNRECOGNIZED DRUG - OTHER] IV (09:01)
[2023-08-11 09:30] VITALS: BP 121/79; PULSE 84; RESP 16; TEMP 36.3; O2SAT 94
[2023-08-11 10:00] VITALS: BP 120/76; PULSE 80; RESP 16; O2SAT 93
[2023-08-11 10:30] VITALS: BP 119/79; PULSE 80; RESP 16; O2SAT 93
[2023-08-11 13:20] VITALS: BP 122/83; PULSE 79; RESP 16; TEMP 36.4; O2SAT 98
== END 2023-08-24 23:59 | disposition home or self-care (01) ==
PROVIDERS: PCP Registered Nurse; Visit Provider Psychiatry & Neurology Neurology
DX: E74.02 Pompe disease (principal); Z53.9 Procedure and treatment not carried out, unspecified reason
CPT/HCPCS: 96365; 96366; J7060; J7070

== ENCOUNTER 2023-09-22 08:00 | Oncology outpatient (recurring) (ONCR) | payer BC, SELFPAY ==
[2023-08-25 08:15] VITALS: BP 129/84; PULSE 80; TEMP 36.7; O2SAT 94
[2023-08-25] MEDS: acetaminophen 325 mg Tablet 650 MG PO (08:40)
[2023-08-25] MEDS: diphenhydrAMINE 25 mg Capsule PO (08:41)
[2023-08-25] MEDS: dextrose 5% 250 ML 25 ML IV (08:42)
[2023-08-25] MEDS: [UNRECOGNIZED DRUG - OTHER] IV (09:29)
[2023-08-25] MEDS: DEXTROSE 5% IV (09:29)
[2023-08-25 09:30] VITALS: BP 119/81; PULSE 79; TEMP 36.6; O2SAT 94
[2023-08-25 10:00] VITALS: BP 110/73; PULSE 80; TEMP 36.6; O2SAT 93
[2023-08-25 10:30] VITALS: BP 129/77; PULSE 78; TEMP 36.7; O2SAT 94
[2023-08-25 11:00] VITALS: BP 119/72; PULSE 74; O2SAT 94
[2023-08-25 13:29] VITALS: BP 121/69; PULSE 79; RESP 16; TEMP 36.7; O2SAT 93
[2023-09-22 08:15] VITALS: BP 115/75; PULSE 84; RESP 16; TEMP 36.4; O2SAT 99
[2023-09-22 08:18] VITALS: BMI 34.1
[2023-09-22] MEDS: acetaminophen 325 mg Tablet 650 MG PO (08:34)
[2023-09-22] MEDS: diphenhydrAMINE 25 mg Capsule PO (08:34)
[2023-09-22] MEDS: dextrose 5% 250 ML 75 ML IV (08:34)
[2023-09-22 09:35] VITALS: BP 123/72; PULSE 77; RESP 16; TEMP 36.4; O2SAT 97
[2023-09-22] MEDS: DEXTROSE 5% IV (09:37)
[2023-09-22] MEDS: [UNRECOGNIZED DRUG - OTHER] IV (09:37)
[2023-09-22 10:10] VITALS: BP 120/81; PULSE 70; RESP 16; TEMP 36.5; O2SAT 97
[2023-09-22 10:40] VITALS: BP 126/76; PULSE 74; RESP 16; TEMP 36.5; O2SAT 95
[2023-09-22 11:10] VITALS: BP 119/71; PULSE 71; RESP 16; TEMP 36.5; O2SAT 95
[2023-09-22 13:25] VITALS: BP 116/70; PULSE 71; RESP 16; TEMP 36.3; O2SAT 94
== END 2023-09-22 23:59 | disposition home or self-care (01) ==
PROVIDERS: PCP Registered Nurse; Visit Provider Psychiatry & Neurology Neurology
DX: E74.02 Pompe disease (principal); Z53.9 Procedure and treatment not carried out, unspecified reason
CPT/HCPCS: 96365; 96366; J7060; J7070

== ENCOUNTER 2023-10-10 07:49 | Oncology outpatient (recurring) (ONCR) | payer BC, SELFPAY ==
[2023-10-10] VITALS (7 sets, daily range): BP systolic 123–156; BP diastolic 73–90; PULSE 65–89; RESP 16–17; TEMP 36.2–36.5; O2SAT 95–99
[2023-10-10] MEDS: acetaminophen 325 mg Tablet 650 MG PO (08:36)
[2023-10-10] MEDS: diphenhydrAMINE 25 mg Capsule PO (08:37)
[2023-10-10] MEDS: dextrose 5% 250 ML 75 ML IV (08:41)
[2023-10-10] MEDS: [UNRECOGNIZED DRUG - OTHER] IV (09:36)
[2023-10-10] MEDS: DEXTROSE 5% IV (09:36)
== END 2023-10-23 23:59 | disposition home or self-care (01) ==
PROVIDERS: PCP Registered Nurse; Visit Provider Psychiatry & Neurology Neurology
DX: E74.02 Pompe disease (principal)
CPT/HCPCS: 96365; 96366; J7060; J7070

== ENCOUNTER 2023-10-27 07:52 | Oncology outpatient (recurring) (ONCR) | payer BC, SELFPAY ==
[2023-10-27] MEDS: acetaminophen 325 mg Tablet 650 MG PO (09:02)
[2023-10-27] MEDS: diphenhydrAMINE 25 mg Capsule PO (09:03)
[2023-10-27] MEDS: dextrose 5% 250 ML 75 ML IV (09:04)
[2023-10-27 09:13] VITALS: BP 121/76; PULSE 80; RESP 18; TEMP 36.6; O2SAT 98
[2023-10-27] MEDS: DEXTROSE 5% IV (09:34)
[2023-10-27] MEDS: [UNRECOGNIZED DRUG - OTHER] IV (09:34)
[2023-10-27 09:41] VITALS: BP 153/76; PULSE 76; RESP 18; TEMP 36.6; O2SAT 96
[2023-10-27 10:25] VITALS: BP 120/79; PULSE 78; RESP 18; TEMP 36.1; O2SAT 96
[2023-10-27 13:25] VITALS: BP 126/78; PULSE 76; RESP 18; TEMP 36.6; O2SAT 96
== END 2023-11-22 23:59 | disposition home or self-care (01) ==
PROVIDERS: PCP Registered Nurse; Visit Provider Psychiatry & Neurology Neurology
DX: E74.02 Pompe disease (principal)
CPT/HCPCS: 96413; 96415; J7060; J7070

== ENCOUNTER 2023-12-22 08:00 | Oncology outpatient (recurring) (ONCR) | payer BC, SELFPAY ==
[2023-11-24] MEDS: dextrose 5% 250 ML 75 ML IV (08:10)
[2023-11-24] MEDS: acetaminophen 325 mg Tablet 650 MG PO (08:10)
[2023-11-24] MEDS: diphenhydrAMINE 25 mg Capsule PO (08:10)
[2023-11-24] MEDS: [UNRECOGNIZED DRUG - OTHER] IV (09:00)
[2023-11-24] MEDS: DEXTROSE 5% IV (09:00)
[2023-11-24 09:03] VITALS: BP 124/82; PULSE 78; RESP 18; TEMP 36.8; O2SAT 95
[2023-11-24 09:33] VITALS: BP 118/72; PULSE 75; RESP 18; TEMP 36.4; O2SAT 95
[2023-11-24 10:03] VITALS: BP 113/77; PULSE 82; RESP 18; TEMP 36.7
[2023-11-24 10:33] VITALS: BP 128/71; PULSE 79; RESP 18; TEMP 36.5; O2SAT 95
[2023-11-24 13:45] VITALS: BP 147/90; PULSE 79; RESP 18; TEMP 36.7; O2SAT 98
[2023-12-08 08:08] VITALS: BP 127/74; PULSE 73; RESP 18; TEMP 36.6; O2SAT 99
[2023-12-08] MEDS: diphenhydrAMINE 25 mg Capsule PO (08:29)
[2023-12-08] MEDS: dextrose 5% 250 ML 75 ML IV (08:29)
[2023-12-08] MEDS: acetaminophen 325 mg Tablet 650 MG PO (08:29)
[2023-12-08] MEDS: [UNRECOGNIZED DRUG - OTHER] IV (08:54)
[2023-12-08] MEDS: DEXTROSE 5% IV (08:54)
[2023-12-08 08:55] VITALS: BP 113/79; PULSE 71; RESP 18; TEMP 36.4; O2SAT 96
[2023-12-08 09:25] VITALS: BP 124/72; PULSE 64; RESP 16; TEMP 36.4; O2SAT 96
[2023-12-08 09:55] VITALS: BP 124/83; PULSE 83; RESP 16; TEMP 36.4; O2SAT 95
[2023-12-08 10:25] VITALS: BP 135/84; PULSE 74; RESP 16; TEMP 36.3; O2SAT 95
[2023-12-08 13:12] VITALS: BP 148/84; PULSE 71; RESP 17; TEMP 36.4; O2SAT 97
[2023-12-22] VITALS (7 sets, daily range): BP systolic 121–162; BP diastolic 73–89; PULSE 70–87; RESP 16–18; TEMP 36.5–37; O2SAT 93–98
[2023-12-22] MEDS: diphenhydrAMINE 25 mg Capsule PO (08:29)
[2023-12-22] MEDS: acetaminophen 325 mg Tablet 650 MG PO (08:29)
[2023-12-22] MEDS: dextrose 5% 250 ML 75 ML IV (09:02)
[2023-12-22] MEDS: DEXTROSE 5% IV (09:05)
[2023-12-22] MEDS: [UNRECOGNIZED DRUG - OTHER] IV (09:05)
== END 2023-12-23 23:59 | disposition home or self-care (01) ==
PROVIDERS: PCP Registered Nurse; Visit Provider Psychiatry & Neurology Neurology
DX: Z53.9 Procedure and treatment not carried out, unspecified reason (principal); E74.02 Pompe disease
CPT/HCPCS: 96365; 96366; 96367; 96375; A4222; J7060; J7070

== ENCOUNTER 2023-12-27 07:16 | Day surgery (SDC) | payer BC, SELFPAY ==
[2023-12-27] VITALS (7 sets, daily range): BP systolic 119–162; BP diastolic 76–88; PULSE 77–91; RESP 14–18; TEMP 36.1–36.6; O2SAT 94–98; BMI 34.4
--- NOTE | 2023-12-27 07:21 | XRR_ITS ---
PROCEDURE INFORMATION: Exam: XR Chest Exam date and time: 12/27/2023 9:22 AM Age: 43 years old Clinical indication: Device placement; Other: Mediport; Prior surgery; Surgery date: Post-operative (0-2 days); Additional info: Post op mediport TECHNIQUE: Imaging protocol: Radiologic exam of the chest. Views: 1 view. COMPARISON: CR XR chest 1V portable [id number] 01/06/2023 12:31 PM FINDINGS: Tubes, catheters and devices: Left-sided central venous chest port noted with the distal tip in the lower SVC region. Lungs: Low lung volumes. No dense confluent airspace opacities identified. Pleural spaces: No pneumothorax. No large pleural effusion. Heart/Mediastinum: The cardiomediastinal silhouette is within normal limits. Bones/joints: Unremarkable. XR/XR chest 1V portable [id number] IMPRESSION: Left-sided central venous chest port noted with the distal tip in the lower SVC region.
--- NOTE | 2023-12-27 07:21 | SC_ITS ---
WS: [id number] C-arm FL for CVA [id number] REASON FOR EXAM: Mediport placement FINDINGS: Chemotherapy infusion port of the left chest with infusion catheter trans left subclavian vein into t he superior vena cava distally. No left pneumothorax identified. SC/C-arm FL for CVA [id number] IMPRESSION: Left-sided chemotherapy infusion port and catheter without abnormality.
[2023-12-27 07:30] LABS: OR HCG Qualitative Urine Negative (Negative)
--- NOTE | 2023-12-27 07:35 | W.PM.OPSUD ---
Surgery/Procedure H&P Update DATE OF PROCEDURE: December 27, 2023 DATE H&P PERFORMED: 12/22/23 H&P UPDATE INFORMATION: I have reviewed H&P completed within last 30 days, I have examined patient prior to procedure and No changes to prior documentation PLANNED PROCEDURE: Operation Date: 12/27/23 08:50 Proposed Procedures p Portacath Placement [id number], E74.02(Not Applicable) - Cristino Llamas DO
[2023-12-27 07:47] LABS: Glucose Point of Care 229 mg/dL (70-110)
--- NOTE | 2023-12-27 07:51 | P.ANESASSM_ITS ---
Pre-Anesthetic Assessment Height/Weight: Height 1.78 m Weight 108.862 kg Temp Pulse Resp BP Pulse Ox O2 Del Method 97.2 F L 79 16 149/78 98 Room Air 12/27/23 07:33 12/27/23 07:33 12/27/23 07:33 12/27/23 07:33 12/27/23 07:33 12/27/23 07:33 Operation Date: 12/27/23 08:50 Proposed Procedures p Portacath Placement [id number], E74.02(Not Applicable) - Cristino Llamas DO Familial anesthetic complications: None Was Beta Cece taken within 24 hours: N/A Was Clonidine taken within 24 hours: N/A Last intake: Intake Last Liquid Date 12/27/23 Last Liquid Time 22:00 Last Solid Date 12/27/23 Last Solid Time 22:00 Social Tobacco and No alcohol Exam alert, oriented x 3, clear to auscultation bilaterally and regular rate & rhythm Airway Mallampati: Class II Dentition: chipped Pulmonary Chronic Obstructive Pulmonary Disease GI Gastroesophageal Reflux Disease Metabolic Diabetes Mellitus pompe disease [facility] 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 Anesthetic Plan ASA status: 3 Anesthesia: MAC Risk of > 500 ml blood loss (7ml/kg in children): No Medications/Allergies Home Medications Medication Instructions Recorded Confirmed Last Taken Type omeprazole 20 mg capsule,delayed 20 mg PO DAILY 02/04/22 12/26/23 12/25/23 History release diclofenac sodium 50 mg 50 mg PO BID #60 tabs 04/12/22 12/26/23 12/26/23 Rx tablet,delayed release Marijuana 08/12/22 12/22/23 Unknown History methocarbamol 750 mg tablet 750 mg PO Q8H 08/12/22 12/26/23 12/25/23 History magnesium 200 mg tablet 200 mg PO DAILY 01/06/23 12/26/23 12/25/23 History turmeric 100 mg-joel 150 1 cap PO BID 01/06/23 12/26/23 12/26/23 History mg-olive 50 mg-oreg 150 mg-capryl capsule vitamin E 268 mg (400 unit) capsule 268 mg PO DAILY 01/06/23 12/26/23 12/25/23 History acetaminophen 325 mg tablet 325 mg PO QID PRN Pain 02/23/23 12/26/23 Unknown History potassium chloride 20 mEq 10 meq PO DAILY 02/23/23 12/26/23 12/25/23 History tablet,extended release semaglutide 7 mg tablet (Rybelsus) 14 mg PO DAILY 02/23/23 12/26/23 12/25/23 History insulin glargine 100 unit/mL 80 unit SUBCUT DAILY 12/22/23 12/26/23 12/25/23 History subcutaneous solution (Lantus U-100 Insulin) nortriptyline 10 mg capsule 10 mg PO DAILY 12/22/23 12/26/23 12/25/23 History paroxetine HCl 20 mg tablet (Paxil) 20 mg PO DAILY 12/22/23 12/26/23 12/25/23 History Allergies Allergy/AdvReac Type Severity Reaction Status Date / Time metformin Allergy Intermediate diarrhea Verified 12/22/23 14:39 exenatide [From Bydureon] Allergy Mild knots Verified 12/22/23 14:39 hydrocodone Allergy Mild ADR-Itching Verified 12/26/23 10:32 [facility] Anesthesia Medical History Pompe disease Smokes cigarettes GERD (gastroesophageal reflux disease) COPD (chronic obstructive pulmonary disease) Diabetes Lumbar pain Surgical History S/P cholecystectomy S/P appendectomy S/P knee surgery S/P hernia repair Family History Sister Diabetes Family/Other Diabetes Social History Smoking and tobacco/nicotine status: current every day tobacco/nicotine user cigarettes Packs smoked per day: 1.5 Years cigarettes smoked: 24 Alcohol intake: never Substance/Drug Use: never Data Anesthesia Cardiac Studies: Echocardiogram 01/13/23 Sestamibi Stress Test (Cardiology) 01/06
[2023-12-27] MEDS: sodium chloride 0.9% 1,000 ML 30 ML IV (07:53)
[2023-12-27] MEDS: ceFAZolin 2,000 MG in sodium chloride 0.9% (plus) 50 ML 100 MG IV (08:30)
[2023-12-27] MEDS: lidocaine-epi 2% PF 1:200,000 20 mL SDV INJECTION (08:54)
[2023-12-27] MEDS: heparin, porcine 1,000 unit/mL INJ 10 mL 10000 UNIT INJECTION (08:56)
--- NOTE | 2023-12-27 09:34 | P.OP_ITS ---
Operative Report Date of procedure: December 27, 2023 Pre-op diagnosis: Pompe disease Post-op diagnosis: same Procedure done: Mediport insertion Intraoperative interpretation of fluoroscopy Implants: PowerPort Specimens removed/disposition: None Surgeon: Cristino Llamas DO Anesthesia: MAC and Local Estimated blood loss (mL): 5 Complications: None apparent Brief History: This is a very pleasant 43-year-old female with Pompe disease that gets frequent venous accesses and infusions that requested Mediport placement. The risks and benefits were explained and documented. Procedure: They put another order I will do right now things the patient was taken to the operating room and placed supine on the operating room table. All bony prominences were padded. She was given IV sedation and monitored throughout the case by the anesthesia personnel. SCDs were placed and turned on. The arms were tucked to the side. Patient received Ancef 2 g preoperatively IV. The bilateral chest wall was prepped and draped in usual sterile fashion using chlorhexidine base prep. Sterile drapes were applied. We did procedure pause prior to beginning. An 18 gauge needle was placed in the left subclavian vein. Dark, nonpulsatile blood was aspirated. A guidewire was placed through the needle centrally toward the atrial/vena caval junction. Fluoroscopy visualized good placement. The needle was removed and the guidewire was clipped to the drape with a hemostat. Further local anesthetic was infiltrated in the soft tissues of the left chest wall and a #15 blade was used to make a horizontal skin incision. A subcutaneous Mediport pocket was created using Bovie cautery, dissecting down through the skin and subcutaneous tissues. Meticulous hemostasis was achieved. The Mediport was sutured in position using 3-0 vicryl suture x2 stitches. A #15 blade was used to make a small skin kiersten around the guidewire insertion area. The Mediport tubing was tunneled through the subcutaneous tissues up to the needle insertion location. A dilator with a peel-away sheath was placed over the guidewire and placed centrally. After measuring the Mediport tubing was cut to length so that the tip would end at the atrial/vena caval junction. The inner cannula and the guidewire were removed, leaving the dilator sheath in place. The Mediport was flushed. The tip of the catheter was inserted through the peel-away sheath and the peel-away sheath removed in the standard fashion. The Mediport was accessed with a straight Lewis needle and dark, nonpulsatile blood was aspirated and flushed using heparinized saline to hep-lock the Mediport. Final fluoroscopy visualization showed no kink in the catheter and the tip of the Mediport tubing near the atrial/vena caval junction. There was no obvious pneumothorax Both skin incisions were thoroughly irrigated and suctioned dry. Meticulous hemostasis noted. The dermis was approximated with 3-0 Vicryl in an interrupted fashion. Skin was closed with Dermabond. Patient was awakened from anesthesia and transferred via her cart to the re covery room in stable condition. All needle, sponge, and instrument counts were correct per the operating personnel x2 counts.
--- NOTE | 2023-12-27 10:10 | ANE.PACU2 ---
Inpatient post-anesthesia follow up: Airway intact: Yes Vital signs: Temperature 97.5 F Pulse Rate 84 Respiratory Rate 16 Blood Pressure 142/88 Pulse Oximetry 97 Oxygen Delivery Me thod Room Air Oxygen Flow Rate Fraction of Inspir ed Oxygen Hydration adequate: Yes Nausea and vomiting: No Pain level: 1 Mental status: Baseline
== END 2023-12-27 10:12 | disposition home or self-care (01) ==
PROVIDERS: Anesthesiology; PCP Nurse Practitioner Family; Visit Provider Surgery
PROC: (CPT 36561; principal; 2023-12-27 08:50)
DX: E74.02 Pompe disease (principal); J44.9 Chronic obstructive pulmonary disease, unspecified; K21.9 Gastro-esophageal reflux disease without esophagitis; E11.9 Type 2 diabetes mellitus without complications; F17.210 Nicotine dependence, cigarettes, uncomplicated
CPT/HCPCS: 36561; 36416; 71045; 77001; 81025; 82962; C1788; J0690; J1644; J2250; J2704; J2765; J3010; J7030

== ENCOUNTER 2024-01-19 08:00 | Oncology outpatient (recurring) (ONCR) | payer BC, SELFPAY ==
[2024-01-05 08:04] VITALS: BP 160/93; PULSE 77; RESP 18; TEMP 36.4; O2SAT 97
[2024-01-05] MEDS: diphenhydrAMINE 25 mg Capsule PO (08:35)
[2024-01-05] MEDS: acetaminophen 325 mg Tablet 650 MG PO (08:35)
[2024-01-05] MEDS: dextrose 5% 250 ML 30 ML IV (09:02)
[2024-01-05 09:07] VITALS: BP 130/83; PULSE 70; RESP 18; TEMP 36.6; O2SAT 96
[2024-01-05] MEDS: [UNRECOGNIZED DRUG - OTHER] IV (09:07)
[2024-01-05] MEDS: DEXTROSE 5% IV (09:07)
[2024-01-05 10:07] VITALS: BP 139/85; PULSE 73; RESP 18; TEMP 36.6; O2SAT 94
[2024-01-05 10:37] VITALS: BP 141/88; PULSE 68; RESP 18; O2SAT 94
[2024-01-05 10:45] VITALS: BP 144/91; PULSE 75; RESP 18; TEMP 36.6; O2SAT 94
[2024-01-05 13:31] VITALS: BP 144/77; PULSE 77; RESP 18; TEMP 36.4; O2SAT 99
[2024-01-19 08:01] VITALS: BP 160/90; PULSE 89; RESP 16; TEMP 36.6; O2SAT 98
[2024-01-19] MEDS: acetaminophen 325 mg Tablet 650 MG PO (08:52)
[2024-01-19] MEDS: diphenhydrAMINE 25 mg Capsule PO (08:52)
[2024-01-19] MEDS: dextrose 5% 250 ML 35 ML IV (08:54)
[2024-01-19] MEDS: [UNRECOGNIZED DRUG - OTHER] IV (09:34)
[2024-01-19] MEDS: DEXTROSE 5% IV (09:34)
[2024-01-19 09:35] VITALS: BP 135/85; PULSE 77; RESP 16; TEMP 36.8; O2SAT 93
[2024-01-19 10:05] VITALS: BP 135/84; PULSE 71; RESP 16; TEMP 36.4; O2SAT 92
[2024-01-19 10:35] VITALS: BP 154/84; PULSE 72; RESP 16; TEMP 36.2; O2SAT 93
[2024-01-19 11:11] VITALS: BP 153/89; PULSE 68; RESP 16; O2SAT 93
[2024-01-19 13:49] VITALS: BP 154/103; PULSE 67; TEMP 36.7; O2SAT 93
== END 2024-01-22 23:59 | disposition home or self-care (01) ==
PROVIDERS: PCP Nurse Practitioner Family; Visit Provider Psychiatry & Neurology Neurology
DX: E74.02 Pompe disease (principal); Z53.9 Procedure and treatment not carried out, unspecified reason
CPT/HCPCS: 96365; 96366; 96413; 96415; A4222; J7060; J7070

== ENCOUNTER 2024-02-02 07:55 | Oncology outpatient (recurring) (ONCR) | payer BC, SELFPAY ==
[2024-02-02 08:08] VITALS: BP 137/81; PULSE 75; RESP 18; TEMP 36.4; O2SAT 97
[2024-02-02] MEDS: acetaminophen 325 mg Tablet 650 MG PO (08:32)
[2024-02-02] MEDS: diphenhydrAMINE 25 mg Capsule PO (08:33)
[2024-02-02] MEDS: dextrose 5% 250 ML 30 ML IV (08:53)
[2024-02-02 08:55] VITALS: BP 110/68; PULSE 74; RESP 16; O2SAT 99
[2024-02-02] MEDS: DEXTROSE 5% IV (08:55)
[2024-02-02] MEDS: [UNRECOGNIZED DRUG - OTHER] IV (08:55)
[2024-02-02 09:25] VITALS: BP 123/78; PULSE 74; RESP 16; TEMP 36.4; O2SAT 97
[2024-02-02 09:55] VITALS: BP 124/80; PULSE 84; RESP 16; TEMP 36.3; O2SAT 96
[2024-02-02 10:25] VITALS: BP 134/83; PULSE 72; RESP 16; TEMP 36.3
[2024-02-02 12:55] VITALS: BP 132/92; PULSE 82; RESP 16; O2SAT 98
--- NOTE | 2024-02-22 11:17 | PC.NURSE ---
Called Dr. Kent office and requested new orders. Left message with clinic nurse.
--- NOTE | 2024-02-22 11:20 | PC.NURSE ---
Addendum entered by Dee Magdaleno RN 02/22/24 11:58: patient returned call, informed that new orders were requested and once they have been sent patient will be able to reschedule appt. Patient verbalized understanding. Original Note: LVM for patient to return call to reschedule appt.
== END 2024-02-22 23:59 | disposition home or self-care (01) ==
LOC: ONCMED 07:55
PROVIDERS: PCP Nurse Practitioner Family; Visit Provider Psychiatry & Neurology Neurology
DX: E74.02 Pompe disease (principal)
CPT/HCPCS: 96365; 96366; A4222; J7060; J7070

== ENCOUNTER 2024-02-28 12:00 | Outpatient (CLI) | payer BC, SELFPAY ==
--- NOTE | 2024-02-28 12:00 | MM_ITS ---
WS: [id number] BILATERAL 3D TOMOSYNTHESIS DIGITAL SCREENING MAMMOGRAPHY WITH CAD CLINICAL INFORMATION: SCREENING HISTORY: Screening mammogram. No current complaints. COMPARISON: Baseline TECHNIQUE: Bilateral CC and MLO views. FINDINGS: Scattered fibroglandular densities bilaterally. No suspicious focal mass, asymmetry, calcifications, or architectural distortion. No evidence of malignancy. MM/[place] [id number] IMPRESSION: BI-RADS: 1-Negative FOLLOW UP: 1 Year Follow-up Recommend return to annual screening mammography.
== END 2024-02-28 12:01 | disposition home or self-care (01) ==
PROVIDERS: PCP Nurse Practitioner Family; Visit Provider Nurse Practitioner Family
DX: Z12.31 Encounter for screening mammogram for malignant neoplasm of breast (principal); R92.323 Mammographic fibroglandular density, bilateral breasts
CPT/HCPCS: 77063; 77067

== ENCOUNTER 2024-03-22 08:00 | Oncology outpatient (recurring) (ONCR) | payer BC, SELFPAY ==
[2024-03-01] VITALS (7 sets, daily range): BP systolic 114–138; BP diastolic 70–89; PULSE 64–84; RESP 18; TEMP 36.1–36.6; O2SAT 96–98
[2024-03-01] MEDS: diphenhydrAMINE 25 mg Capsule PO (08:15)
[2024-03-01] MEDS: acetaminophen 325 mg Tablet 650 MG PO (08:15)
[2024-03-01] MEDS: dextrose 5% 250 ML 75 ML IV (08:16)
[2024-03-01] MEDS: DEXTROSE 5% IV (09:03)
[2024-03-01] MEDS: [UNRECOGNIZED DRUG - OTHER] IV (09:03)
[2024-03-22 07:50] VITALS: BP 150/88; PULSE 95; RESP 16; TEMP 36.3; O2SAT 97
[2024-03-22] MEDS: acetaminophen 325 mg Tablet 650 MG PO (08:10)
[2024-03-22] MEDS: diphenhydrAMINE 25 mg Capsule PO (08:10)
[2024-03-22 09:20] VITALS: BP 150/88; PULSE 95; RESP 16; TEMP 36.3; O2SAT 97
[2024-03-22] MEDS: [UNRECOGNIZED DRUG - OTHER] IV (09:23)
[2024-03-22] MEDS: DEXTROSE 5% IV (09:23)
[2024-03-22 09:50] VITALS: BP 145/85; PULSE 86; RESP 16; TEMP 36.2; O2SAT 94
[2024-03-22 10:30] VITALS: BP 135/85; PULSE 78; RESP 16; TEMP 36.3; O2SAT 93
[2024-03-22 10:50] VITALS: BP 143/94; PULSE 74; RESP 16; TEMP 36.3; O2SAT 94
[2024-03-22 12:56] VITALS: BP 152/88; PULSE 87; TEMP 36.3; O2SAT 96
== END 2024-03-24 23:59 | disposition home or self-care (01) ==
PROVIDERS: PCP Nurse Practitioner Family; Visit Provider Psychiatry & Neurology Neurology
DX: E74.02 Pompe disease (principal); Z53.9 Procedure and treatment not carried out, unspecified reason; Z79.899 Other long term (current) drug therapy
CPT/HCPCS: 96365; 96366; A4222; J7060; J7070

== ENCOUNTER 2024-04-23 08:00 | Oncology outpatient (recurring) (ONCR) | payer BC, SELFPAY ==
[2024-04-05 08:15] VITALS: BP 127/77; PULSE 84; RESP 18; TEMP 36.9; O2SAT 96
[2024-04-05] MEDS: dextrose 5% 250 ML 75 ML IV (08:30)
[2024-04-05] MEDS: acetaminophen 325 mg Tablet 650 MG PO (08:30)
[2024-04-05] MEDS: diphenhydrAMINE 25 mg Capsule PO (08:42)
[2024-04-05] MEDS: [UNRECOGNIZED DRUG - OTHER] IV (09:11)
[2024-04-05] MEDS: DEXTROSE 5% IV (09:11)
[2024-04-05 09:40] VITALS: BP 143/91; PULSE 76; RESP 17; TEMP 36.7; O2SAT 92
[2024-04-05 10:15] VITALS: BP 149/89; PULSE 72; RESP 17; TEMP 36.5; O2SAT 93
[2024-04-05 10:48] VITALS: BP 152/93; PULSE 73; RESP 16; TEMP 36.5; O2SAT 93
[2024-04-05 12:27] VITALS: BP 154/84; PULSE 88; TEMP 36.5; O2SAT 94
[2024-04-23 08:05] VITALS: BP 142/82; PULSE 94; RESP 16; TEMP 36.5; O2SAT 97
[2024-04-23] MEDS: acetaminophen 325 mg Tablet 650 MG PO (08:22)
[2024-04-23] MEDS: diphenhydrAMINE 25 mg Capsule PO (08:22)
[2024-04-23 09:05] VITALS: BP 136/80; PULSE 87; RESP 16; TEMP 36.4; O2SAT 94
[2024-04-23] MEDS: [UNRECOGNIZED DRUG - OTHER] IV (09:05)
[2024-04-23] MEDS: DEXTROSE 5% IV (09:05)
[2024-04-23 09:35] VITALS: BP 123/81; PULSE 83; RESP 16; TEMP 36.3; O2SAT 93
[2024-04-23 10:05] VITALS: BP 139/90; PULSE 83; RESP 16; TEMP 36.3
[2024-04-23 10:35] VITALS: BP 147/79; PULSE 80; RESP 16; TEMP 36.3; O2SAT 94
== END 2024-04-23 23:59 | disposition home or self-care (01) ==
PROVIDERS: PCP Nurse Practitioner Family; Visit Provider Psychiatry & Neurology Neurology
DX: E74.02 Pompe disease (principal); Z53.9 Procedure and treatment not carried out, unspecified reason; Z79.899 Other long term (current) drug therapy
CPT/HCPCS: 96365; 96366; A4222; J7060; J7070

== ENCOUNTER 2024-05-10 08:01 | Oncology outpatient (recurring) (ONCR) | payer BC, SELFPAY ==
[2024-05-10] MEDS: acetaminophen 325 mg Tablet 650 MG PO (08:17)
[2024-05-10] MEDS: diphenhydrAMINE 25 mg Capsule PO (08:17)
[2024-05-10 08:19] VITALS: BP 123/76; PULSE 80; RESP 16; TEMP 36.3; O2SAT 96
[2024-05-10 09:08] VITALS: BP 132/84; PULSE 66; RESP 18; TEMP 36.4; O2SAT 99
[2024-05-10] MEDS: DEXTROSE 5% IV (09:08)
[2024-05-10] MEDS: [UNRECOGNIZED DRUG - OTHER] IV (09:08)
[2024-05-10 09:38] VITALS: BP 125/80; PULSE 72; RESP 18; TEMP 36.2; O2SAT 94
[2024-05-10 10:09] VITALS: BP 130/81; PULSE 70; RESP 18; TEMP 36.2; O2SAT 95
[2024-05-10 10:39] VITALS: BP 155/95; PULSE 72; RESP 18; TEMP 36.4; O2SAT 95
[2024-05-10 12:37] VITALS: BP 147/87; PULSE 78; RESP 17; TEMP 36.1; O2SAT 98
== END 2024-05-24 23:59 | disposition home or self-care (01) ==
PROVIDERS: PCP Nurse Practitioner Family; Visit Provider Psychiatry & Neurology Neurology
DX: E74.02 Pompe disease (principal); Z79.899 Other long term (current) drug therapy
CPT/HCPCS: 96365; 96366; 96375; J7070

== ENCOUNTER 2024-06-04 07:45 | Oncology outpatient (recurring) (ONCR) | payer BC, SELFPAY ==
[2024-06-04 08:00] VITALS: BMI 34.9
[2024-06-04 08:01] VITALS: BP 135/91; PULSE 93; RESP 16; TEMP 36.6; O2SAT 98
[2024-06-04] MEDS: diphenhydrAMINE 25 mg Capsule PO (08:21)
[2024-06-04] MEDS: acetaminophen 325 mg Tablet 650 MG PO (08:21)
[2024-06-04] MEDS: DEXTROSE 5% IV (08:56)
[2024-06-04] MEDS: [UNRECOGNIZED DRUG - OTHER] IV (08:56)
[2024-06-04 09:30] VITALS: BP 134/88; PULSE 82; RESP 16; TEMP 36.5; O2SAT 98
[2024-06-04 10:00] VITALS: BP 124/75; PULSE 75; RESP 16; TEMP 36.1; O2SAT 98
[2024-06-04 10:30] VITALS: BP 143/85; PULSE 78; RESP 16; TEMP 36.4; O2SAT 96
== END 2024-06-23 23:59 | disposition home or self-care (01) ==
PROVIDERS: PCP Nurse Practitioner Family; Visit Provider Psychiatry & Neurology Neurology
DX: E74.02 Pompe disease (principal); Z79.899 Other long term (current) drug therapy
CPT/HCPCS: 96365; 96366; 96375; A4222; J7060; J7070

== ENCOUNTER 2024-07-19 08:00 | Oncology outpatient (recurring) (ONCR) | payer BC, SELFPAY ==
[2024-06-26 08:05] VITALS: BP 152/93; PULSE 90; RESP 16; TEMP 36.1; O2SAT 98
[2024-06-26] MEDS: alteplase 1 mg/mL SDV 2 mL 2 MG INTRACATH (08:48)
[2024-06-26] MEDS: acetaminophen 325 mg Tablet 650 MG PO (08:56)
[2024-06-26] MEDS: diphenhydrAMINE 25 mg Capsule PO (08:57)
[2024-06-26] MEDS: DEXTROSE 5% IV (10:01)
[2024-06-26] MEDS: [UNRECOGNIZED DRUG - OTHER] IV (10:01)
[2024-06-26 10:03] VITALS: BP 154/90; PULSE 78; RESP 16; TEMP 36.2; O2SAT 98
[2024-06-26 10:30] VITALS: BP 155/90; PULSE 76; RESP 16; TEMP 36.3; O2SAT 96
[2024-06-26 11:09] VITALS: BP 147/88; PULSE 82; RESP 16; TEMP 36.3; O2SAT 94
[2024-06-26 11:40] VITALS: BP 149/100; PULSE 82; RESP 16; TEMP 36.3; O2SAT 96
[2024-06-26 13:49] VITALS: BP 162/89; PULSE 103; RESP 17; TEMP 36; O2SAT 95
[2024-07-19] MEDS: acetaminophen 325 mg Tablet 650 MG PO (08:27)
[2024-07-19] MEDS: diphenhydrAMINE 25 mg Capsule PO (08:27)
[2024-07-19 09:06] VITALS: BP 131/76; PULSE 70; RESP 16; TEMP 36
[2024-07-19] MEDS: DEXTROSE 5% IV (09:06)
[2024-07-19] MEDS: [UNRECOGNIZED DRUG - OTHER] IV (09:06)
[2024-07-19 10:06] VITALS: BP 125/80; PULSE 70; RESP 16; TEMP 36.2; O2SAT 93
[2024-07-19 13:43] VITALS: BP 170/100; PULSE 84; RESP 17; TEMP 36.3; O2SAT 93
== END 2024-07-24 23:59 | disposition home or self-care (01) ==
PROVIDERS: PCP Nurse Practitioner Family; Visit Provider Psychiatry & Neurology Neurology
DX: E74.02 Pompe disease (principal); Z79.899 Other long term (current) drug therapy; Z53.9 Procedure and treatment not carried out, unspecified reason
CPT/HCPCS: 36593; 96365; 96366; 96413; 96415; A4222; J2997; J7070

== ENCOUNTER 2024-08-13 08:24 | Oncology outpatient (recurring) (ONCR) | payer BC, SELFPAY ==
[2024-08-13] MEDS: diphenhydrAMINE 25 mg Capsule PO (09:01)
[2024-08-13] MEDS: acetaminophen 325 mg Tablet 650 MG PO (09:02)
[2024-08-13 10:10] VITALS: BP 140/81; PULSE 73; TEMP 36.3; O2SAT 95
[2024-08-13] MEDS: [UNRECOGNIZED DRUG - OTHER] IV (10:10)
[2024-08-13] MEDS: DEXTROSE 5% IV (10:10)
[2024-08-13 10:40] VITALS: BP 157/87; PULSE 71; TEMP 36.3; O2SAT 93
[2024-08-13 11:13] VITALS: BP 157/97; PULSE 72; TEMP 36.3; O2SAT 94
[2024-08-13 11:47] VITALS: BP 168/91; PULSE 70; TEMP 36.5; O2SAT 95
[2024-08-13 13:00] VITALS: BP 146/90; PULSE 71; O2SAT 93
[2024-08-13 14:00] VITALS: BP 173/93; PULSE 74; TEMP 36.6; O2SAT 98
== END 2024-08-24 23:59 | disposition home or self-care (01) ==
PROVIDERS: PCP Nurse Practitioner Family; Visit Provider Psychiatry & Neurology Neurology
DX: Z79.899 Other long term (current) drug therapy (principal); E74.02 Pompe disease
CPT/HCPCS: 96365; 96366; A4222; J7070

== ENCOUNTER 2024-09-06 07:58 | Oncology outpatient (recurring) (ONCR) | payer BC, SELFPAY ==
[2024-09-06 08:28] VITALS: BP 142/78; PULSE 85; TEMP 36.9; O2SAT 96
[2024-09-06] MEDS: diphenhydrAMINE 25 mg Capsule PO (08:45)
[2024-09-06] MEDS: acetaminophen 325 mg Tablet 650 MG PO (08:45)
[2024-09-06] MEDS: [UNRECOGNIZED DRUG - OTHER] IV (09:18)
[2024-09-06] MEDS: DEXTROSE 5% IV (09:18)
[2024-09-06 09:49] VITALS: BP 124/71; PULSE 76; RESP 16; TEMP 36.7; O2SAT 94
[2024-09-06 09:51] VITALS: BP 124/71; PULSE 76; TEMP 36.7; O2SAT 94
[2024-09-06 16:25] VITALS: BP 166/69; PULSE 80; RESP 16; TEMP 36.8; O2SAT 95
== END 2024-09-21 23:59 | disposition home or self-care (01) ==
PROVIDERS: PCP Nurse Practitioner Family; Visit Provider Psychiatry & Neurology Neurology
DX: E74.02 Pompe disease (principal); Z79.899 Other long term (current) drug therapy
CPT/HCPCS: 96365; 96366; A4222; J7070

== ENCOUNTER 2024-10-18 08:03 | Oncology outpatient (recurring) (ONCR) | payer BC, SELFPAY ==
[2024-10-04 09:00] VITALS: BP 121/74; PULSE 76; RESP 18; TEMP 36.6; O2SAT 95
[2024-10-04] MEDS: acetaminophen 325 mg Tablet 650 MG PO (09:06)
[2024-10-04] MEDS: diphenhydrAMINE 25 mg Capsule PO (09:07)
[2024-10-04 09:30] VITALS: BP 122/76; PULSE 76; RESP 17; TEMP 36.4; O2SAT 98
[2024-10-04] MEDS: DEXTROSE 5% IV (09:32)
[2024-10-04] MEDS: [UNRECOGNIZED DRUG - OTHER] IV (09:32)
[2024-10-04 10:00] VITALS: BP 124/78; PULSE 76; RESP 18; TEMP 36.6; O2SAT 96
[2024-10-04 11:00] VITALS: BP 129/78; PULSE 83; RESP 16; TEMP 36.1; O2SAT 96
[2024-10-04 12:11] VITALS: BP 123/78; PULSE 84; RESP 17; TEMP 36.6; O2SAT 96
[2024-10-04 13:35] VITALS: BP 124/78; PULSE 74; RESP 18; TEMP 36.6; O2SAT 98
[2024-10-18] MEDS: acetaminophen 325 mg Tablet 650 MG PO (08:53)
[2024-10-18] MEDS: diphenhydrAMINE 25 mg Capsule PO (08:55)
[2024-10-18] MEDS: alteplase 1 mg/mL SDV 2 mL 2 MG INTRACATH (09:58)
[2024-10-18] MEDS: [UNRECOGNIZED DRUG - OTHER] IV (12:08)
[2024-10-18] MEDS: DEXTROSE 5% IV (12:08)
[2024-10-18 16:50] VITALS: BP 150/79; PULSE 78; RESP 18; TEMP 36.6; O2SAT 92
== END 2024-10-22 23:59 | disposition home or self-care (01) ==
PROVIDERS: PCP Nurse Practitioner Family; Visit Provider Psychiatry & Neurology Neurology
DX: Z53.9 Procedure and treatment not carried out, unspecified reason; E74.02 Pompe disease; Z79.899 Other long term (current) drug therapy
CPT/HCPCS: 96413; 96415; A4222; J2997; J7070; J9999

== ENCOUNTER 2024-11-20 07:54 | Oncology outpatient (recurring) (ONCR) | payer BC, SELFPAY ==
[2024-11-20 08:15] VITALS: BP 129/71; PULSE 81; RESP 16; TEMP 36.5; O2SAT 95
[2024-11-20] MEDS: acetaminophen 325 mg Tablet 650 MG PO (08:34)
[2024-11-20] MEDS: diphenhydrAMINE 25 mg Capsule PO (08:34)
[2024-11-20 09:02] VITALS: BP 121/72; PULSE 80; RESP 16; TEMP 36.6; O2SAT 94
[2024-11-20] MEDS: [UNRECOGNIZED DRUG - OTHER] IV (09:02)
[2024-11-20] MEDS: DEXTROSE 5% IV (09:02)
[2024-11-20 09:55] VITALS: BP 138/95; PULSE 82; RESP 16; TEMP 36.6; O2SAT 96
[2024-11-20 10:26] VITALS: BP 131/76; PULSE 80; RESP 16; TEMP 36.6; O2SAT 93
[2024-11-20 10:57] VITALS: BP 148/90; PULSE 82; RESP 16; TEMP 36.6; O2SAT 93
[2024-11-20 13:04] VITALS: BP 153/92; PULSE 86
== END 2024-11-21 23:59 | disposition home or self-care (01) ==
LOC: ONCMED 07:54
PROVIDERS: PCP Nurse Practitioner Family; Visit Provider Psychiatry & Neurology Neurology
DX: E74.02 Pompe disease (principal); Z79.899 Other long term (current) drug therapy
CPT/HCPCS: 96365; 96366; A4222; J7070; J9999

== ENCOUNTER 2024-12-12 08:05 | Oncology outpatient (recurring) (ONCR) | payer BC, SELFPAY ==
[2024-12-12] VITALS (7 sets, daily range): BP systolic 108–160; BP diastolic 67–81; PULSE 73–103; RESP 16–18; TEMP 36.3–36.8; O2SAT 94–98
[2024-12-12] MEDS: acetaminophen 325 mg Tablet 650 MG PO (08:45)
[2024-12-12] MEDS: diphenhydrAMINE 25 mg Capsule PO (08:45)
[2024-12-12] MEDS: [UNRECOGNIZED DRUG - OTHER] IV (09:26)
[2024-12-12] MEDS: DEXTROSE 5% IV (09:26)
== END 2024-12-22 23:59 | disposition home or self-care (01) ==
LOC: ONCMED 08:06
PROVIDERS: PCP Nurse Practitioner Family; Visit Provider Psychiatry & Neurology Neurology
DX: E74.02 Pompe disease (principal); Z79.899 Other long term (current) drug therapy
CPT/HCPCS: 96365; 96366; A4222; J7070; J9999

== ENCOUNTER 2025-01-17 07:45 | Oncology outpatient (recurring) (ONCR) | payer BC, SELFPAY ==
[2025-01-02 08:11] VITALS: BP 147/77; PULSE 96; RESP 16; TEMP 36.4; O2SAT 97
[2025-01-02] MEDS: dextrose 5% 250 ML IV (08:21)
[2025-01-02] MEDS: acetaminophen 325 mg Tablet 650 MG PO (08:22)
[2025-01-02] MEDS: diphenhydrAMINE 25 mg Capsule PO (08:22)
[2025-01-02 09:00] VITALS: BP 147/77; PULSE 96; RESP 18; TEMP 36.4; O2SAT 97
[2025-01-02] MEDS: [UNRECOGNIZED DRUG - OTHER] IV (09:00)
[2025-01-02] MEDS: DEXTROSE 5% IV (09:00)
[2025-01-02 09:30] VITALS: BP 124/71; PULSE 73; RESP 17; TEMP 36.7; O2SAT 94
[2025-01-02 10:00] VITALS: BP 135/78; PULSE 76; RESP 18; TEMP 36.7; O2SAT 95
[2025-01-02 10:30] VITALS: BP 125/78; PULSE 77; RESP 17; TEMP 36.7; O2SAT 94
[2025-01-02 12:19] VITALS: BP 133/84; PULSE 76; RESP 17; TEMP 36.7; O2SAT 95
[2025-01-17 08:03] VITALS: BP 140/77; PULSE 78; RESP 15; TEMP 36.4; O2SAT 96
[2025-01-17] MEDS: diphenhydrAMINE 25 mg Capsule PO (08:08)
[2025-01-17] MEDS: acetaminophen 325 mg Tablet 650 MG PO (08:08)
[2025-01-17] MEDS: DEXTROSE 5% IV (08:44)
[2025-01-17] MEDS: [UNRECOGNIZED DRUG - OTHER] IV (08:44)
[2025-01-17 08:45] VITALS: BP 129/72; PULSE 77; RESP 18; TEMP 36.3; O2SAT 95
[2025-01-17 09:15] VITALS: BP 129/83; PULSE 69; RESP 18
[2025-01-17 09:45] VITALS: BP 145/82; PULSE 75; RESP 18; TEMP 36.3
[2025-01-17 10:15] VITALS: BP 138/83; PULSE 73; RESP 18; TEMP 36.3; O2SAT 94
== END 2025-01-21 23:59 | disposition home or self-care (01) ==
PROVIDERS: PCP Nurse Practitioner Family; Visit Provider Psychiatry & Neurology Neurology
DX: E74.02 Pompe disease (principal); Z79.899 Other long term (current) drug therapy
CPT/HCPCS: 96365; 96366; A4222; J7060; J7070; J9999

== ENCOUNTER 2025-02-07 07:58 | Oncology outpatient (recurring) (ONCR) | payer BC, SELFPAY ==
[2025-02-07 09:05] VITALS: BP 134/71; PULSE 71; RESP 16; TEMP 36.3; O2SAT 93
[2025-02-07] MEDS: [UNRECOGNIZED DRUG - OTHER] IV (09:05)
[2025-02-07] MEDS: DEXTROSE 5% IV (09:05)
[2025-02-07 10:05] VITALS: BP 153/79; PULSE 55; RESP 16; TEMP 36.3
[2025-02-07 10:35] VITALS: BP 146/77; PULSE 86; RESP 16; TEMP 36.1; O2SAT 92
[2025-02-07 12:05] VITALS: BP 167/98; PULSE 85; RESP 18; TEMP 36.7; O2SAT 93
--- NOTE | 2025-02-07 13:29 | PC.NURSE ---
Patient has no other orders for reaction from her outpatient orders, another 25mg Benadryl given PO from [facility], swelling, redness and itching still present. Dr Lozano's office is closed for lunch so patient was sent to ER for further evaluation. 1302 patient returns for deaccess of port, she refuses to wait in ER and states she is improving, no redness noted still some swelling on the ears. 1305 Dr Lozano's office called and given report on what happened.
== END 2025-02-07 12:10 | disposition home or self-care (01) ==
PROVIDERS: PCP Nurse Practitioner Family; Visit Provider Internal Medicine
DX: E74.02 Pompe disease (principal); Z79.899 Other long term (current) drug therapy
CPT/HCPCS: 96365; 96366; A4222; J7070; J9999

== ENCOUNTER 2025-02-07 12:58 | Oncology outpatient (recurring) (ONCR) | payer BC, SELFPAY | END 2025-02-21 23:59 | disposition home or self-care (01) | LOC: ONCMED 12:59 | PROVIDERS: PCP Nurse Practitioner Family; Visit Provider Internal Medicine | DX: E74.02 Pompe disease (principal); Z79.899 Other long term (current) drug therapy ==

== ENCOUNTER 2025-02-27 07:52 | Oncology outpatient (recurring) (ONCR) | payer BC, SELFPAY ==
[2025-02-27] VITALS (8 sets, daily range): BP systolic 142–164; BP diastolic 77–96; PULSE 76–97; RESP 16–17; TEMP 36.2–36.6; O2SAT 92–96
[2025-02-27] MEDS: methylPREDNISolone sod succ 125 mg/2 mL INJ IVP (08:58)
[2025-02-27] MEDS: [UNRECOGNIZED DRUG - OTHER] IV (10:08)
[2025-02-27] MEDS: DEXTROSE 5% IV (10:08)
--- NOTE | 2025-02-27 14:30 | PC.NURSE ---
Pt receiving nexviazyme infusion. New order was for an additional 25mg PO benadryl and 125 solumedrol as premedications. Premedications given to pt before treatment began. At 1314 pt complained of swollen and itchy ears, itching on head and abdomen. Infusion stopped. Vitals 164/94, HR 97, O2 92%. NS given at 999 rate. At 1320 another 25mg PO benadryl was given per order for itching and hives. Vitals at 1324- 142/79, HR 94, O2 95%. Pt states she does not want to finish infusion and does not want to stay for observation. Pt verified no itching or swelling in throat, no difficulty breathing. Pt was deaccessed and educated to go to ED if symptoms worsen.
== END 2025-03-24 23:59 | disposition home or self-care (01) ==
LOC: ONCMED 07:52
PROVIDERS: PCP Nurse Practitioner Family; Visit Provider Psychiatry & Neurology Neurology
DX: E74.02 Pompe disease (principal); Z79.899 Other long term (current) drug therapy
CPT/HCPCS: 96365; 96366; 96375; J2919; J7060; J7070; J9999

== ENCOUNTER 2025-05-09 08:00 | Oncology outpatient (recurring) (ONCR) | payer BC, SELFPAY ==
[2025-04-25 08:41] VITALS: BP 145/84; PULSE 73; O2SAT 98
[2025-04-25] MEDS: [UNRECOGNIZED DRUG - REMARK] 260 MG PO (08:47)
[2025-04-25] MEDS: methylPREDNISolone sod succ 125 mg/2 mL INJ IVP (09:28)
[2025-04-25] MEDS: [UNRECOGNIZED DRUG - REMARK] 34.7 MG IV (10:14)
[2025-04-25 10:15] VITALS: BP 159/86; PULSE 73; RESP 17; TEMP 36.4; O2SAT 98
[2025-04-25 14:26] VITALS: BP 161/93; PULSE 93; TEMP 36.7; O2SAT 95
[2025-05-09 08:16] VITALS: BP 159/89; PULSE 73; TEMP 36.2; O2SAT 99
[2025-05-09] MEDS: [UNRECOGNIZED DRUG - REMARK] 260 MG PO (08:36)
[2025-05-09] MEDS: methylPREDNISolone sod succ 125 mg/2 mL INJ IVP (08:46)
[2025-05-09 10:07] VITALS: BP 175/85; PULSE 71; RESP 16; TEMP 36.4; O2SAT 97
[2025-05-09] MEDS: [UNRECOGNIZED DRUG - REMARK] 30.8 MG IV (10:07)
[2025-05-09 10:47] VITALS: BP 158/82; PULSE 82; RESP 16; TEMP 36.2; O2SAT 97
[2025-05-09 11:24] VITALS: BP 161/94; PULSE 81; RESP 16; TEMP 36.2; O2SAT 93
[2025-05-09 14:24] VITALS: BP 177/90; PULSE 89; RESP 16; TEMP 36.3; O2SAT 96
== END 2025-05-24 23:59 | disposition home or self-care (01) ==
PROVIDERS: PCP Nurse Practitioner Family; Visit Provider Psychiatry & Neurology Neurology
DX: E74.02 Pompe disease; Z79.899 Other long term (current) drug therapy; Z53.9 Procedure and treatment not carried out, unspecified reason
CPT/HCPCS: 96365; 96366; 96375; A4222; J2919; J7040; J7050; J9999

== ENCOUNTER 2025-06-13 08:00 | Oncology outpatient (recurring) (ONCR) | payer BC, SELFPAY ==
[2025-05-30 08:41] VITALS: BP 123/86; PULSE 78; RESP 16; TEMP 36.7; O2SAT 95
[2025-05-30] MEDS: methylPREDNISolone sod succ 125 mg/2 mL INJ IVP (08:56)
[2025-05-30] MEDS: [UNRECOGNIZED DRUG - REMARK] 260 MG PO (08:57)
[2025-05-30 09:53] VITALS: BP 125/65; PULSE 77; RESP 16; TEMP 36.7; O2SAT 93
[2025-05-30] MEDS: [UNRECOGNIZED DRUG - REMARK] 33.8 MG IV (09:53)
[2025-05-30 10:24] VITALS: BP 157/89; PULSE 85; RESP 16; TEMP 36.5; O2SAT 92
[2025-05-30 10:55] VITALS: BP 151/89; PULSE 84; RESP 16; TEMP 36.7; O2SAT 92
[2025-05-30 11:45] VITALS: BP 141/87; PULSE 82; RESP 16; TEMP 36.8; O2SAT 97
[2025-05-30 13:44] VITALS: BP 155/80; PULSE 94; RESP 16; TEMP 36.8; O2SAT 96
[2025-06-13 08:15] VITALS: BP 132/86; PULSE 77; RESP 17; TEMP 36.6; O2SAT 97
[2025-06-13] MEDS: methylPREDNISolone sod succ 125 mg/2 mL INJ IVP (08:26)
[2025-06-13] MEDS: [UNRECOGNIZED DRUG - REMARK] 260 MG PO (08:28)
[2025-06-13 09:30] VITALS: BP 146/81; PULSE 71; RESP 16; TEMP 36.4; O2SAT 95
[2025-06-13] MEDS: [UNRECOGNIZED DRUG - REMARK] 34.4 MG IV (09:30)
[2025-06-13 10:00] VITALS: BP 158/92; PULSE 76; RESP 16; TEMP 36.4; O2SAT 95
[2025-06-13 10:30] VITALS: BP 164/94; PULSE 80; RESP 16; TEMP 36; O2SAT 94
[2025-06-13 11:00] VITALS: BP 153/92; PULSE 76; RESP 16; TEMP 36.6; O2SAT 95
[2025-06-13 13:09] VITALS: BP 157/93; PULSE 91; RESP 16; TEMP 36.7; O2SAT 95
== END 2025-06-23 23:59 | disposition home or self-care (01) ==
PROVIDERS: PCP Nurse Practitioner Family; Visit Provider Psychiatry & Neurology Neurology
DX: E74.02 Pompe disease; Z79.899 Other long term (current) drug therapy; Z53.9 Procedure and treatment not carried out, unspecified reason
CPT/HCPCS: 96365; 96366; 96375; A4222; J2919; J7040; J7050; J9999

== ENCOUNTER 2025-07-11 07:56 | Oncology outpatient (recurring) (ONCR) | payer BC, SELFPAY ==
--- NOTE | 2025-06-27 08:35 | PC.PHAR ---
Patient arrived this morning for pombility + opfolda treatment. this is a white bag. I'm currently on the phone with [facility]. both the infusion and oral meds were sent together. the oral medication was accidentally thrown away with the box during unpacking. We believe this occurred last Tuesday. I'm attempting to get a override but have been on hold for over 30 minutes at this time.
--- NOTE | 2025-06-27 08:38 | PC.NURSE ---
Patient medication not delivered to pharmacy. PT will be rescheduled
--- NOTE | 2025-06-27 10:14 | PC.PHAR ---
Opfolda update: I spent over an hour on the phone with [facility] and patient's insurance. Both denied an override for a new shipment of Opfolda. I spoke with [facility] reference # [id number]. I have reached out to both liasons for this patient - Padmaja and Simona to see if they can assist us. I have also reached out to Gladis Andujar who can help determine if [employer] can provide this medication.
--- NOTE | 2025-07-01 11:03 | PC.PHAR ---
OPFOLDA UPDATE: Tuesday06/28/25, i received approval from my superviser to order one month supply of Opfolda from [facility] specialty. I phoned Allyson at [facility] specialty and placed one time credit card on file for a 1 x refill. Allyson explained that she would call Maritza to set up delivery and would charge the card at that time. I have attempted to call Maritza twice this morning to determine if she has heard from [facility]. No answer.
--- NOTE | 2025-07-02 07:48 | PC.PHAR ---
opfolda update: i have made several attempts to contact Maritza to determine if [facility] has arranged shipment of her opfolda to her house. Her cell phone goes straight to voicemail (i've left a message) and the house phone rings continuously and has no voicemail. I will phone [facility] today to see if I can find out anything from them.
--- NOTE | 2025-07-02 09:29 | PC.PHAR ---
OPFOLDA UPDATE: LUCIA PHONED AND SHE INDEED RECEIVED THE OPFOLDA IN THE MAIL. I ATTEMPTED TO PLACE HER ON THE SCHEDULE THIS WEEK BUT SHE STATES SHE IS SICK AND CAN'T COME IN. I WILL LET SCHEDULING KNOW WE ANTICIPATE TREATING HER NEXT TUESDAY BUT SHE WILL CALL IN TO CONFIRM. ALSO, SHE STATED THAT HER INSURANCE WILL REMAIN BC[employer] NEXT YEAR SO WE WILL ATTEMPT TO GET HER ON HOME INFUSION.
[2025-07-11] VITALS (7 sets, daily range): BP systolic 135–175; BP diastolic 80–98; PULSE 76–101; RESP 16–17; TEMP 36.2–36.9; O2SAT 92–96
[2025-07-11] MEDS: [UNRECOGNIZED DRUG - REMARK] 260 MG PO (08:49)
[2025-07-11] MEDS: methylPREDNISolone sod succ 125 mg/2 mL INJ IVP (08:50)
[2025-07-11] MEDS: [UNRECOGNIZED DRUG - REMARK] 33.4 MG IV (10:13)
== END 2025-07-24 23:59 | disposition home or self-care (01) ==
LOC: ONCMED 07:57
PROVIDERS: PCP Nurse Practitioner Family; Visit Provider Psychiatry & Neurology Neurology
DX: E74.02 Pompe disease (principal); Z79.899 Other long term (current) drug therapy
CPT/HCPCS: 96365; 96366; 96375; A4222; J2919; J7040; J7050; J9999